=== PATIENT | female | born 1955 | race Caucasian/White ===

== ENCOUNTER → 2018-03-28 07:41 | Outpatient (CLI) | payer OTHER, SELFPAY ==
[2018-03-28 09:10] LABS: Cholesterol 255 mg/dL (140-199); HDL Cholesterol 51 mg/dL (40-60); LDL Cholesterol Calculated 165 mg/dL (<100); Triglycerides 196 mg/dL (35-150)
[2018-03-28 12:26] LABS: Hemoglobin A1C% w Est Avg Glu 5.7 % (4.0-6.0)
== END ==
PROVIDERS: Family Provider Family Medicine; PCP Family Medicine; Visit Provider Family Medicine
DX: E11.9 Type 2 diabetes mellitus without complications (principal)
CPT/HCPCS: 36415; 80061; 83036

== ENCOUNTER → 2018-08-27 17:27 | Outpatient (CLI) | payer OTHER, SELFPAY ==
[2018-08-27 17:47] LABS: Appearance Urine UA SL CLOUDY; Bilirubin Urine UA NEGATIVE (NEGATIVE); Color Urine UA YELLOW; Glucose Urine UA TRACE g/dL (Normal); Ketones Urine UA TRACE (NEGATIVE); Leukocyte Esterase Urine UA 1+ (NEGATIVE); Nitrite Urine UA NEGATIVE (Negative); Occult Blood Urine UA 1+ (Negative); Protein Urine UA TRACE (Negative); Specific Gravity Urine UA >=1.030 (1.000-1.035); Urobilinogen Urine UA 0.2 E.U./dL (0.2); pH Urine UA 5.5 (4.5-8.0)
[2018-08-27 17:59] LABS: Bacteria Urine Occasional (0-1); Culture Indicated Urine Specimen Cultured; RBC Urine 0-1/HPF (0-5/HPF); Squamous Epithelial Cell Urine 0-1 /HPF; WBC Urine 10-30/HPF (0-5/HPF)
== END ==
PROVIDERS: PCP Family Medicine; Visit Provider Family Medicine
DX: R30.0 Dysuria (principal)
CPT/HCPCS: 81003; 81015; 87077; 87086; 87186

== ENCOUNTER → 2019-03-31 07:12 | Outpatient (CLI) | payer OTHER, SELFPAY ==
[2019-03-31 08:45] LABS: Add Manual Diff / Slide Review NO; Basophils Absolute Auto 0 /uL (0-100); Eosinophils Absolute Auto 200 /uL (0-450); Eosinophils Percent Auto 4.3 % (2-4); Hematocrit 39.7 % (36-46); Hemoglobin 13.6 g/dL (12.0-16.0); Lymphocytes Absolute Auto 1600 /uL (1100-4500); Lymphocytes Percent Auto 41.9 % (25-40); Mean Corpuscular HGB Conc 34.3 % (30-36); Mean Corpuscular Hemoglobin 30.5 PG (26-34); Mean Corpuscular Volume 88.8 fL (80-100); Monocytes Absolute Auto 400 /uL (0-900); Monocytes Percent Auto 11.1 % (3-14); Neutrophils Absolute Auto 1600 /uL (1500-7000); Neutrophils Percent Auto 41.7 % (50-75); Platelet Count 238 X10^3/uL (150-400); Red Blood Cell Count 4.47 X10^6/uL (4.0-5.2); Red Cell Distribution Width 12.3 % (11.6-14.8); White Blood Cell Count 3.8 X10^3/uL (4.5-11.0)
[2019-03-31 08:53] LABS: Hemoglobin A1C% w Est Avg Glu 5.9 % (4.0-6.0)
[2019-03-31 09:03] LABS: Alanine Aminotransferase 27 IU/L (9-52); Albumin 4.4 g/dL (3.5-5.0); Albumin Globulin Ratio 1.4 (1.0-2.8); Alkaline Phosphatase 63 U/L (38-126); Aspartate Aminotransferase 31 IU/L (14-36); BUN Creatinine Ratio 25.6 (6-22); Bilirubin Total 0.4 mg/dL (0.2-1.3); Blood Urea Nitrogen 23 mg/dL (7-17); Calcium 10.1 mg/dL (8.4-10.2); Carbon Dioxide 27 mmol/L (22-32); Chloride 102 mmol/L (98-107); Cholesterol 244 mg/dL (140-199); Estimated Glomerular Filt Rate > 60.0 mL/min (>60); Globulin 3.1 g/dL (1.7-4.1); Glucose 129 mg/dL (80-110); HDL Cholesterol 42 mg/dL (40-60); HEMOLYSIS < 15 (0-50); LDL Cholesterol Calculated 151 mg/dL (<100); Potassium 4.1 mmol/L (3.4-5.1); Sodium 139 mmol/L (137-145); Total Protein 7.5 g/dL (6.3-8.2); Triglycerides 257 mg/dL (35-150)
== END ==
PROVIDERS: PCP Family Medicine; Visit Provider Family Medicine
DX: E11.9 Type 2 diabetes mellitus without complications (principal); E78.2 Mixed hyperlipidemia
CPT/HCPCS: 36415; 80053; 80061; 83036; 85025

== ENCOUNTER → 2019-04-02 12:31 | Outpatient (CLI) | payer OTHER, SELFPAY ==
--- NOTE | 2019-04-02 | DI.MG.S_ITS ---
BILATERAL DIGITAL SCREENING MAMMOGRAM 3D/2D WITH CAD: 04/02/2019 CLINICAL: Routine screening. Family history of breast cancer. Comparison is made to exams dated: 12/26/2017 mammogram, 11/09/2016 mammogram, and 06/06/2015 mammogram - [facility]. The tissue of both breasts is heterogeneously dense. This may lower the sensitivity of mammography. Current study was also evaluated with a Computer Aided Detection (CAD) system. No significant masses, calcifications, or other findings are seen in either breast. There has been no significant interval change. IMPRESSION: NEGATIVE There is no mammographic evidence of malignancy. A 1 year screening mammogram is recommended. This exam was interpreted at Station ID: [id number]. NOTE: For mammograms, a report in lay terms will be sent to the patient. Approximately 15% of breast malignancies will not be visualized mammographically. In the management of a palpable breast mass, a negative mammogram must not discourage biopsy of a clinically suspicious lesion. Electronically Signed By: Hnas espinoza/tani:04/02/2019 17:51:40 letter sent: Normal Exam ACR BI-RADS Category 1: Negative [id number]
== END ==
PROVIDERS: PCP Family Medicine; Visit Provider Family Medicine
DX: Z12.31 Encounter for screening mammogram for malignant neoplasm of breast (principal); Z80.3 Family history of malignant neoplasm of breast
CPT/HCPCS: 77063; 77067

== ENCOUNTER → 2019-12-22 08:17 | Outpatient (CLI) | payer OTHER, SELFPAY ==
[2019-12-22 09:12] LABS: Hemoglobin A1C% w Est Avg Glu 6.3 % (4.0-6.0)
[2019-12-22 10:05] LABS: Creatinine Urine Random 64.9 mg/dL
[2019-12-22 10:22] LABS: Microalbumi Creatinin Ratio Ur 9.2 ug/mg CR (<30); Microalbumin Urine Random < 0.6 mg/dL (0-1.6)
== END ==
PROVIDERS: PCP Family Medicine; Referring Provider Family Medicine; Visit Provider Family Medicine
DX: E11.9 Type 2 diabetes mellitus without complications (principal)
CPT/HCPCS: 36415; 82043; 82570; 83036

== ENCOUNTER → 2020-05-09 08:49 | Outpatient (CLI) | payer OTHER, SELFPAY ==
--- NOTE | 2020-05-09 08:59 | DI.MG.S_ITS ---
Patient Name: RUDI BAILEY date: 1955 Sex: F Attending Physician: Ephraim Indications: Date: 05/09/2020 08:53 At the request of: DAMASO ROBLES Procedure: MM screening mammo BI BILATERAL DIGITAL SCREENING MAMMOGRAM 3D/2D WITH CAD: 05/09/2020 CLINICAL: Routine screening. Family history of breast cancer. Comparison is made to exams dated: 04/02/2019 mammogram, 12/26/2017 mammogram, and 11/09/2016 mammogram - [facility]. The tissue of both breasts is heterogeneously dense. This may lower the sensitivity of mammography. Current study was also evaluated with a Computer Aided Detection (CAD) system. No significant masses, calcifications, or other findings are seen in either breast. There has been no significant interval change. IMPRESSION: NEGATIVE There is no mammographic evidence of malignancy. A 1 year screening mammogram is recommended. This exam was interpreted at Station ID: [id number]. NOTE: For mammograms, a report in lay terms will be sent to the patient. Approximately 15% of breast malignancies will not be visualized mammographically. In the management of a palpable breast mass, a negative mammogram must not discourage biopsy of a clinically suspicious lesion. Electronically Signed By: Damaso Zamarripa jr/tani:05/09/2020 09:40:33 letter sent: Normal Exam ACR BI-RADS Category 1: Negative 3341F
== END ==
PROVIDERS: PCP Family Medicine; Referring Provider Family Medicine; Visit Provider Family Medicine
DX: Z12.31 Encounter for screening mammogram for malignant neoplasm of breast (principal); Z80.3 Family history of malignant neoplasm of breast
CPT/HCPCS: 77063; 77067

== ENCOUNTER 2020-06-29 07:55 | Inpatient (IN) | payer OTHER, SELFPAY ==
[2020-06-29] VITALS (26 sets, daily range): BP systolic 128–159; BP diastolic 60–91; PULSE 66–90; RESP 12–22; TEMP 35.9–37.1; O2SAT 92–100; BMI 29.9
--- NOTE | 2020-06-29 | PATH_ITS ---
[facility] Accession Number: [id number] . 01 Material submitted: . small bowel - SMALL BOWEL SEGMENT . 01 Clinical history: . A: SMALL BOWEL SEGMENT X2, GASTRIC DISTRESS X1 DAY . 02 Diagnosis: Small Bowel, Resection: 1. Small bowel with areas of denuded mucosa and atrophy, consistent with ischemia. 2. Serosal fibrous adhesions. 3. Margins viable in both segments. 4. Negative for dysplasia or malignancy. MRV 07/04/2020 1511 Local . 02 Electronically signed: . Mai Garrido MD, Pathologist NPI- [id number] . 01 Gross description: . Received in formalin, labeled with the patient's name, MRN and #1 small bowel segment, are two portions of small bowel measuring 12.5 cm in length by 3.2 cm in diameter and 14.0 cm in length by 2.5 cm in diameter. The serosal surface of the smaller segment of small bowel is pink-hall and smooth. The shorter segment of small bowel is opened to reveal a hall-pink mucosal surface with unremarkable mucosal folds. No discrete masses, perforations or polyps are identified on the shorter portion of small bowel. The longer portion of small bowel has a hall-pink serosal surface with multiple adhesions to itself. The adhesions are 0.4 cm from the nearest stapled margin. The longer segment of small bowel is opened to reveal a pink-hall mucosal surface with unremarkable mucosal folds. No masses, polyps or perforations are identified. [employer] sections are submitted as follows: . A1-A2: shaves of resection margins from shorter segment of small bowel. A3: disability representative sections of small bowel wall from shorter segment. A4: shave of resection margin closest to adhesions from longer portion under that segment of small bowel. A5: shave of opposing margin. A6-A7: disability representative sections of larger segment of small bowel with adhesions. A8: disability representative sections of small bowel wall from larger segment. ([id number]) /MRV 06/30/2020 1437 Local . 02 Pathologist provided ICD-10: K46.0 . 02 CPT . 071587 Performed at: 01 [facility] [address] [id number] MD Satnam Oneill MD Phone: [phone] Performed at: [address] [facility] [address] [id number] MD Mai Garrido MD Phone: [phone]
[2020-06-29 08:34] LABS: Add Manual Diff / Slide Review NO; Basophils Absolute Auto 0 /uL (0-100); Basophils Percent Auto 0.5 % (0-2); Eosinophils Absolute Auto 100 /uL (0-450); Eosinophils Percent Auto 0.7 % (2-4); Hematocrit 42.6 % (36-46); Hemoglobin 14.5 g/dL (12.0-16.0); Lymphocytes Absolute Auto 900 /uL (1100-4500); Lymphocytes Percent Auto 11.9 % (25-40); Mean Corpuscular HGB Conc 34.1 % (30-36); Mean Corpuscular Hemoglobin 29.7 PG (26-34); Mean Corpuscular Volume 87.2 fL (80-100); Monocytes Absolute Auto 300 /uL (0-900); Monocytes Percent Auto 3.6 % (3-14); Neutrophils Absolute Auto 6200 /uL (1500-7000); Neutrophils Percent Auto 83.3 % (50-75); Platelet Count 246 X10^3/uL (150-400); Red Blood Cell Count 4.88 X10^6/uL (4.0-5.2); Red Cell Distribution Width 12.6 % (11.6-14.8); White Blood Cell Count 7.4 X10^3/uL (4.5-11.0)
[2020-06-29 08:37] LABS: Prothrombin Time 11.9 SECONDS (10.1-12.7)
[2020-06-29 08:40] LABS: PTT Partial Thromboplastin Tim 29 SECONDS (26.4-36.2)
[2020-06-29 08:44] LABS: Alanine Aminotransferase 39 IU/L (<35); Albumin Globulin Ratio 1.5 (1.0-2.8); Alkaline Phosphatase 78 U/L (38-126); Aspartate Aminotransferase 36 IU/L (14-36); BUN Creatinine Ratio 22.4 (6-22); Bilirubin Total 0.7 mg/dL (0.2-1.3); Blood Urea Nitrogen 17 mg/dL (7-17); Calcium 11.6 mg/dL (8.4-10.2); Carbon Dioxide 24 mmol/L (22-32); Chloride 100 mmol/L (98-107); Estimated Glomerular Filt Rate > 60.0 mL/min (>60); Globulin 3.4 g/dL (1.7-4.1); Glucose 188 mg/dL (80-110); HEMOLYSIS < 15 (0-50); Lipase 315 U/L (23-300); Potassium 4.2 mmol/L (3.4-5.1); Sodium 137 mmol/L (137-145); Total Protein 8.4 g/dL (6.3-8.2)
[2020-06-29] MEDS: ONDANSETRON 4 MG/2 ML INJ IV (08:52)
--- NOTE | 2020-06-29 09:07 | ED_ITS ---
HPI - Abdominal Pain General Chief Complaint: Abdominal Pain Stated Complaint: Gastric distress x1 day Time Seen by Provider: 06/29/20 08:23 Source: patient and family Mode of arrival: Wheelchair Limitations: no limitations History of Present Illness HPI narrative: Patient here with . Complains slow onset right upper quadrant epigastric periumbilical pain 2:00 p.m. yesterday. Then had nonbloody vomiting. No chest pain no back pain. Pain sharp. 8/10, does not radiate. No numbness tingling weakness. No urinary complaints. Patient still has her gallbladder. History of renal cancer, only has 1 kidney. History appendectomy as well. Related Data Home Medications Medication Instructions Recorded Confirmed aspirin 81 mg PO QDAY #30 tab 09/10/16 06/29/20 [TURMERIC] 1 tab PO BID #0 09/11/17 06/29/20 cholecalciferol (vitamin D3) 5,000 unit PO BID #0 09/11/17 06/29/20 magnesium oxide 200 mg PO DAILY #0 09/11/17 06/29/20 multivitamin [Multiple Vitamins] 1 tab PO QDAY #0 09/11/17 06/29/20 calcium carbonate 600 mg calcium 600 mg PO DIRECTED 01/21/20 06/29/20 (1,500 mg) tablet Allergies Allergy/AdvReac Type Severity Reaction Status Date / Time No Known Drug Allergies Allergy Verified 06/29/20 14:52 Review of Systems Review of Systems Narrative: GENERAL: Denies chills, fatigue, malaise, fever, sweats. HEENT: Denies sinus pain, ear pain, sore throat, difficulty swallowing, dizzin ess. RESPIRATORY: Denies dyspnea, cough, wheezing, hemoptysis, sputum. CARDIOVASCULAR: Denies chest pain, palpitations, orthopnea, edema, GASTROINTESTINAL: Complains of nausea, vomiting, abdominal pain, denies any diarrhea, constipation, melena. : Denies dysuria, frequency, incontinence, hematuria, urinary retention. MUSCULOSKELETAL: denies weakness, joint pain, or bony pain SKIN: Denies rash, skin lesions, or other NEUROLOGIC: Denies weakness, headache, numbness, change in speech, confusion, seizures, incoordination. PSYCHIATRIC: No concerning psychosocial issues. ROS Unobtainable: All systems reviewed & are unremarkable except as noted in HPI and below Patient History Medical History Controlled type 2 diabetes mellitus (Chronic) History of unilateral nephrectomy (Chronic 02/03/14) Irritable bowel syndrome (Chronic) Malignant neoplasm of kidney (Chronic 02/03/14) Mixed hyperlipidemia (Chronic 04/25/12) Surgical History History of nephrectomy Status post appendectomy Status post surgery (03/13/10) Social History marital status: household members: spouse Smoking Status: Never smoker alcohol intake: current substance use type: does not use Smoking Status: Never smoker alcohol intake frequency: 0-2 drinks per day Alcohol type: wine Substance Use Type: does not use Exam Narrative Exam Narrative: GENERAL: patient appears stated age. Well-nourished, well- developed patient, in no distress, not toxic HEAD: Atraumatic. Normocephalic. EYES: Pupils equal round and reactive. Extraocular motions intact. No scleral icterus. No injection or drainage. ENT: Nose without bleeding, purulent drainage. Throat without erythema, tonsillar hypertrophy or exudate. Airway patent. NECK: Trachea midline. Non tender CARDIOVASCULAR: Regular rate and rhythm without murmurs, gallops, or rubs. RESPIRATORY: Clear to auscultation. Breath sounds equal bilaterally. No wheezes, rales, or rhonchi. GASTROINTESTINAL: Abdomen soft, nondistended, reproducible tenderness epigastric and periumbilical. Positive Narayanan sign. No CVA tenderness normal bowel sounds, no peritoneal signs. EXTREMITIES: No edema or joint tenderness. BACK: Nontender without deformity or crepitance. No flank tenderness. NEURO: AOx3. SKIN: No rash or erythema of visible areas PSYCH: Not anxious, is cooperative Initial Vital Signs Initial Vital Signs: Vital Signs Temperature 96.6 F L 06/29/20 08:05 Course Course Course Narrative: NG tube ordered. CT scan results completed. Decision to Admit Date: 06/29/20 Decision to Admit time: 09:51 Orders Ordered: ED Orders 06/29/20 09:06 CT abdomen pelvis wo con Stat 06/29/20 10:02 XR abdomen 1V Stat 06/29/20 10:04 Education, smoking cessation ONGOING 06/30/20 05:00 BMP [Basic Metabolic Panel] DAILY Complete Blood Count AUTO DIFF DAILY Magnesium DAILY Phosphorous DAILY 07/01/20 05:00 BMP [Basic Metabolic Panel] DAILY Complete Blood Count AUTO DIFF DAILY Magnesium DAILY Phosphorous DAILY 07/02/20 05:00 BMP [Basic Metabolic Panel] DAILY Complete Blood Count AUTO DIFF DAILY Magnesium DAILY Phosphorous DAILY Fentanyl (Sublimaze) 0 mcg IV Q5M PRN PRN Reason: Pain, Moderate (4-6) Hydromorphone HCl (Dilaudid) 0 mg IV Q5M PRN PRN Reason: Pain, Severe (7-10) Sodium Chloride (Normal Saline 0.9%) 1,000 mls @ 150 mls/hr IV CONT [facility] Last Admin: 06/29/20 12:06 Dose: 100 mls/hr Documented by: TAMERA Lactated Ringer's (Lactated Ringers) 1,000 mls @ 42 mls/hr IV CONT [facility] Last Admin: 06/29/20 14:46 Dose: 42 mls/hr Documented by: IRVIN Lorazepam (Ativan) 0.25 mg IV NOW PRN PRN Reason: Anxiety Morphine Sulfate (Morphine) 2 mg IV Q2H PRN PRN Reason: Pain, Moderate (4-6) Naloxone HCl (Narcan) 0.2 mg IV Q2MIN PRN PRN Reason: Opiate Reversal Ondansetron HCl (Zofran) 4 mg IV Q8HR PRN PRN Reason: Nausea And Vomiting Ondansetron HCl (Zofran) 4 mg IV NOW PRN PRN Reason: Nausea And Vomiting Discontinued Medications Bupivacaine HCl (Sensorcaine 0.25% (Pf)) 30 ml INJ NOW ONE Stop: 06/29/20 16:23 Last Admin: 06/29/20 16:23 Dose: 30 ml Documented by: ANN Sodium Chloride (Normal Saline 0.9%) 1,000 mls @ 1,000 mls/hr IV BOLUS ONE Stop: 06/29/20 10:03 Last Infusion: 06/29/20 11:09 Dose: 0 mls/hr Documented by: Admin: 06/29/20 09:42 Dose: 1,000 mls/hr Documented by: MORGAN Piperacillin/Tazobactam/Dextrose (Zosyn) 3.375 gm in 50 mls @ 100 mls/hr IV NOW ONE Stop: 06/29/20 15:22 Last Infusion: 06/29/20 16:20 Dose: 0 mls/hr Documented by: Admin: 06/29/20 16:05 Dose: 100 mls/hr Documented by: ARELI Cefazolin Sodium/Dextrose (Ancef) 2 gm in 100 mls @ 200 mls/hr IV NOW ONE Stop: 06/29/20 16:43 Last Infusion: 06/29/20 16:05 Dose: 0 mls/hr Documented by: Admin: 06/29/20 15:50 Dose: 200 mls/hr Documented by: ARELI Morphine Sulfate (Morphine) 4 mg IV NOW ONE Stop: 06/29/20 09:05 Last Admin: 06/29/20 09:42 Dose: 4 mg Documented by: MORGAN Morphine Sulfate (Morphine) 2 mg IV Q4HR PRN PRN Reason: Pain, Moderate (4-6) Ondansetron HCl (Zofran) 4 mg IV NOW ONE Stop: 06/29/20 08:45 Last Admin: 06/29/20 08:52 Dose: 4 mg Documented by: MORGAN Reevaluation(s) Reevaluation #1: Patient states nausea and pain better. Awaiting for NG placement. Spoke with patient has been results and treatment plan and they agree Time: 10:03 Consultations Consultation #1: Spoke with Dr. Carter, general surgery, he will admit patient. Possible surgery today Time: 10:04 Vital Signs Vital signs: Vital Signs - 8 hr 06/29/20 10:00 06/29/20 10:01 06/29/20 10:30 Pulse Rate 67 66 69 Respiratory Rate 15 15 18 Blood Pressure 159/76 H 151/75 H Pulse Oximetry 97 96 94 MDM - Abdominal Pain Differential Diagnosis Differential diagnosis: Likely abdominal pain, constipation, diverticulitis, pancreatitis, small bowel obstruction and other (Cholecystitis) Lab Data Attestation: I reviewed the patient's lab results. Result diagrams: 06/29/20 08:25 06/29/20 08:25 Labs: Lab Results 06/29/20 06/29/20 06/29/20 Range/Units 08:25 08:25 08:25 WBC 7.4 (4.5-11.0) X10^3/uL RBC 4.88 (4.0-5.2) X10^6/uL Hgb 14.5 (12.0-16.0) g/dL Hct 42.6 (36-46) % MCV 87.2 (80-100) fL MCH 29.7 (26-34) PG MCHC 34.1 (30-36) % RDW 12.6 (11.6-14.8) % Plt Count 246 (150-400) X10^3/uL Neut % (Auto) 83.3 H (50-75) % Lymph % (Auto) 11.9 L (25-40) % [place]range % (Auto) 3.6 (3-14) % Eos % (Auto) 0.7 L (2-4) % Baso % (Auto) 0.5 (0-2) % Neut # (Auto) 6200 (7393-0183) /uL Lymph # (Auto) 900 L (9198-6690) /uL [place] # (Auto) 300 (0-900) /uL Eos # (Auto) 100 (0-450) /uL Baso # (Auto) 0 (0-100) /uL PT 11.9 (10.1-12.7) SECONDS INR 1.0 (0.9-1.3) APTT 29 (26.4-36.2) SECONDS Sodium 137 (137-145) mmol/L Potassium 4.2 (3.4-5.1) mmol/L Chloride 100 (98-107) mmol/L Carbon Dioxide 24 (22-32) mmol/L BUN 17 (7-17) mg/dL Creatinine 0.76 (0.52-1.04) mg/dL Estimated GFR > 60.0 (>60) mL/min BUN/Creatinine Ratio 22.4 H (6-22) Glucose 188 H (80-110) mg/dL Calcium 11.6 H (8.4-10.2) mg/dL Total Bilirubin 0.7 (0.2-1.3) mg/dL AST 36 (14-36) IU/L ALT 39 H (<35) IU/L Alkaline Phosphatase 78 (38-126) U/L Total Protein 8.4 H (6.3-8.2) g/dL Albumin 5.0 (3.5-5.0) g/dL Globulin 3.4 (1.7-4.1) g/dL Albumin/Globulin Ratio 1.5 (1.0-2.8) Lipase 315 H (23-300) U/L COVID-19 PCR (Negative) 06/29/20 Range/Units 10:10 WBC (4.5-11.0) X10^3/uL RBC (4.0-5.2) X10^6/uL Hgb (12.0-16.0) g/dL Hct (36-46) % MCV (80-100) fL MCH (26-34) PG MCHC (30-36) % RDW (11.6-14.8) % Plt Count (150-400) X10^3/uL Neut % (Auto) (50-75) % Lymph % (Auto) (25-40) % Lagrange % (Auto) (3-14) % Eos % (Auto) (2-4) % Baso % (Auto) (0-2) % Neut # (Auto) (0318-1141) /uL Lymph # (Auto) (0084-5609) /uL [place] # (Auto) (0-900) /uL Eos # (Auto) (0-450) /uL Baso # (Auto) (0-100) /uL PT (10.1-12.7) SECONDS INR (0.9-1.3) APTT (26.4-36.2) SECONDS Sodium (137-145) mmol/L Potassium (3.4-5.1) mmol/L Chloride (98-107) mmol/L Carbon Dioxide (22-32) mmol/L BUN (7-17) mg/dL Creatinine (0.52-1.04) mg/dL Estimated GFR (>60) mL/min BUN/Creatinine Ratio (6-22) Glucose (80-110) mg/dL Calcium (8.4-10.2) mg/dL Total Bilirubin (0.2-1.3) mg/dL AST (14-36) IU/L ALT (<35) IU/L Alkaline Phosphatase (38-126) U/L Total Protein (6.3-8.2) g/dL Albumin (3.5-5.0) g/dL Globulin (1.7-4.1) g/dL Albumin/Globulin Ratio (1.0-2.8) Lipase (23-300) U/L COVID-19 PCR Negative (Negative) Imaging Data CT scan - abdomen/pelvis: Radiologist's Impression: [address] [address] [address] Scan Report Signed Patient: Apurva Angelo LMR#: [id number] : 6Acct:[id number] Age/Sex: 64 / FDate of Service: 06/29/20 Loc: ED Accession Number: [id number] Procedure: CT abdomen pelvis wo con Ordering Provider: Wayne Hahn MD PROCEDURE: CT ABDOMEN PELVIS WO CON INDICATIONS: Abdominal pain TECHNIQUE: Noncontrast 5 mm thick sections acquired from the diaphragms to the symphysis. 5 mm coronal and sagittal reformats were then performed. For radiation dose reduction, the following was used: automated exposure control, adjustment of mA and/or kV according to patient size. COMPARISON: [facility], CT, ABDOMEN/PELVIS WITH CONTRAST, 06/17/2007, 8:05. FINDINGS: Image quality: Excellent. ABDOMEN: Subcentimeter bilateral pulmonary nodules in subpleural locations of the left and right lower lobes. Please see montage image for further detail. Heart size is normal. Hepatic steatosis. Gallbladder unremarkable . Pancreas is normal in contours. Spleen is normal in size. No adrenal nodules. Right kidney absent. No hydronephrosis. Left kidney grossly unremarkable. Dilated small bowel loops present in the left upper quadrant. A transition point is suspected at the location of a ventral hernia (4-5 cm) which contains bowel loop No free air. There is mild pelvic free fluid. Appendix is not clearly identified however no suspicious pericecal inflammatory changes are seen. Colonic diverticulosis is seen without evidence of acute complication. Nodes and vessels: No retroperitoneal or mesenteric adenopathy by size criteria. Aorta and inferior vena cava are normal in caliber. Miscellaneous: No ventral hernias. PELVIS: Bladder partially decompressed and otherwise unremarkable. Miscellaneous: No inguinal hernias or adenopathy. Bones: No suspicious bony lesions. No vertebral body compression fractures. IMPRESSION: Small-bowel obstruction, with a transition point likely at the location of a ventral hernia which contains bowel loops and fat. Findings were personally telephoned and discussed with Dr. Hahn in the emergency department 0943 hours on 06/29/20. Bilateral lower lobe sub 5 mm pulmonary nodules which warrant continued follow- up in [address] to exclude early metastatic or malignant possibilities. Hepatic steatosis Incidental colonic diverticulosis Additional chronic and incidental findings as above. Dictated by: Gen Richardson M.D. on 06/29/2020 at 9:32 Approved by: Gen Richardson M.D. on 06/29/2020 at 9:43 Abdominal x-ray: Radiologist's Impression: [address] [address] XRay Report Signed Patient: Apurva Angelo LMR#: [id number] : 6Acct:[id number] Age/Sex: 64 / FDate of Service: 06/29/20 Loc: OO878-6 Accession Number: [id number] Procedure: XR abdomen 1V Ordering Provider: Wayne Hahn MD PROCEDURE: XR ABDOMEN 1V INDICATIONS: Post NG placement TECHNIQUE: One view of the abdomen acquired. COMPARISON: [facility], CT, CT ABDOMEN PELVIS WO CON, 06/29/2020, 9:11. FINDINGS: Surgical changes and devices: Enteric tube is seen with the tip in the stomach.. Scattered surgical clips. Dilated small bowel loops are noted as before. Soft tissues: No suspicious abdominal calcifications. Visualized solid organ contours appear normal in size. Bones: No suspicious bony lesions. IMPRESSION: Status post placement of enteric tube with the tip in the stomach. Dictated by: Gen Richardson M.D. on 06/29/2020 at 11:18 Approved by: Gen Richardson M.D. on 06/29/2020 at 13:19 ECG Data Attestation: I personally reviewed and interpreted this ECG as follows: Interpretation: Normal sinus rhythm, no ST elevation depression. Rate 84 MDM Narrative Medical decision making narrative: Will need admission. Possible surgery per surgeon Dr. Carter. Patient not toxic. Discharge Plan Departure Patient Disposition: Admitted As Inpatient Clinical Impression: Small bowel obstruction Discharge Date/Time: 06/29/20 11:03 Admit Date/Time: 06/29/20 10:31 Admit Provider: Denis Carter
[2020-06-29] MEDS: SODIUM CHLORIDE 0.9% 1,000 ML 1000 ML IV (09:42)
[2020-06-29] MEDS: MORPHINE 4 MG/ML INJ IV (09:42)
--- NOTE | 2020-06-29 10:02 | DI.RAD.S_ITS ---
PROCEDURE: XR ABDOMEN 1V INDICATIONS: Post NG placement TECHNIQUE: One view of the abdomen acquired. COMPARISON: [facility], CT, CT ABDOMEN PELVIS WO CON, 06/29/2020, 9:11. FINDINGS: Surgical changes and devices: Enteric tube is seen with the tip in the stomach.. Scattered surgical clips. Dilated small bowel loops are noted as before. Soft tissues: No suspicious abdominal calcifications. Visualized solid organ contours appear normal in size. Bones: No suspicious bony lesions. IMPRESSION: Status post placement of enteric tube with the tip in the stomach. Dictated by: Gen Richardson M.D. on 06/29/2020 at 11:18 Approved by: Gen Richardson M.D. on 06/29/2020 at 13:19
--- NOTE | 2020-06-29 10:59 | PC.NURSE ---
OGt placed without difficulty via right nare. 150 cc bile/greenish brown drainage. placement confirmed by auscultation and gastric contents.
[2020-06-29] MEDS: SODIUM CHLORIDE 0.9% 1,000 ML 100 ML IV (12:06)
[2020-06-29 12:07] LABS: COVID19 -Nasal RAPID Negative (Negative)
--- NOTE | 2020-06-29 12:46 | PC.ADMIT ---
Safe hand off from ED. Patient arrived via portable stretcher and was able to shit to the bed w/ stand by assistance. Patient VSS, lung sounds clear. Patient denies nausea or pain at this time, but stated she had Morphine in the ED. Patient bowel tones hypoactive in all 4 quadrants. Patient was educated about the use of call light, bed is low and locked. [email or web address] [id number] Admission Note: The patient,Apurva Angelo,64 y/o, was given written information regarding hospital policies, unit procedures and contact persons. Patient's smoking status: Never smoker. Vital Signs - 8 hr 06/29/20 08:05 06/29/20 08:25 06/29/20 08:38 Temperature 96.6 F L Pulse Rate 90 82 Respiratory Rate 19 Blood Pressure 128/60 Pulse Oximetry 94 96 06/29/20 08:40 06/29/20 09:00 06/29/20 09:01 Temperature Pulse Rate 81 77 79 Respiratory Rate 20 22 17 Blood Pressure 141/78 H 153/70 H Pulse Oximetry 95 96 96 06/29/20 09:30 06/29/20 10:00 06/29/20 10:01 Temperature Pulse Rate 66 67 66 Respiratory Rate 18 15 15 Blood Pressure 133/65 159/76 H Pulse Oximetry 92 97 96 06/29/20 10:30 Temperature Pulse Rate 69 Respiratory Rate 18 Blood Pressure 151/75 H Pulse Oximetry 94
--- NOTE | 2020-06-29 13:37 | PM.HP.1 ---
History of Present Illness History of Present Illness Date Patient Seen: 06/29/20 Time Patient Seen: 13:37 Chief complaint: Gastric distress day Narrative: 64-year-old female seen in consultation for a small-bowel obstruction. For the past 24 hours she has had abdominal pain bloating nausea and emesis. CT abdomen pelvis demonstrates small bowel obstruction with a transition point within a ventral hernia. On admission she is afebrile white blood count 7. She has never had a previous bowel obstruction she does have multiple prior abdominal surgeries. She has history of renal cell carcinoma status post unilateral nephrectomy, appendectomy, laparoscopy for endometriosis. Medical history relevant for noninsulin dependent diabetes. She is a nonsmoke, not anticoagulated takes aspirin daily Patient History Medical History Controlled type 2 diabetes mellitus (Chronic) History of unilateral nephrectomy (Chronic 02/03/14) Irritable bowel syndrome (Chronic) Malignant neoplasm of kidney (Chronic 02/03/14) Mixed hyperlipidemia (Chronic 04/25/12) Surgical History History of nephrectomy Status post appendectomy Status post surgery (03/13/10) Family & Social History Social History: household members spouse Prior Living Arrangements House Safety & Behavioral: Feels Safe in Current Yes Environment Been Physically Hurt or No Threatened By a Person Suicidal Ideation Description None Suicide Plan Description No Plan Tobacco & Substance use: Smoking Status Never smoker alcohol intake current alcohol intake frequency 0-2 drinks per day Substance Use Type does not use Meds Home Medications and Allergies Home Medications Medication Instructions Recorded Confirmed Type aspirin 81 mg PO QDAY #30 tab 09/10/16 06/29/20 History [TURMERIC] #0 09/11/17 01/21/20 History cholecalciferol (vitamin D3) 5,000 unit PO #0 09/11/17 01/21/20 History magnesium oxide 200 mg PO DAILY #0 09/11/17 06/29/20 History multivitamin [Multiple Vitamins] 1 tab PO QDAY #0 09/11/17 06/29/20 History calcium carbonate 600 mg calcium 600 mg PO DIRECTED 01/21/20 06/29/20 History (1,500 mg) tablet Allergies Allergy/AdvReac Type Severity Reaction Status Date / Time No Known Drug Allergies Allergy Verified 01/21/20 09:32 Review of Systems Review of Systems Narrative: A 10 point review of systems is negative except as noted in the HPI Exam Vital Signs (past 8 hours): - 06/29/20 08:05 06/29/20 08:25 06/29/20 08:38 Temperature 96.6 F L Pulse Rate 90 82 Respiratory Rate 19 Blood Pressure 128/60 Pulse Oximetry 94 96 06/29/20 08:40 06/29/20 09:00 06/29/20 09:01 Temperature Pulse Rate 81 77 79 Respiratory Rate 20 22 17 Blood Pressure 141/78 H 153/70 H Pulse Oximetry 95 96 96 06/29/20 09:30 06/29/20 10:00 06/29/20 10:01 Temperature Pulse Rate 66 67 66 Respiratory Rate 18 15 15 Blood Pressure 133/65 159/76 H Pulse Oximetry 92 97 96 06/29/20 10:30 06/29/20 11:15 Temperature 97.7 F Pulse Rate 69 79 Respiratory Rate 18 18 Blood Pressure 151/75 H 149/74 H Pulse Oximetry 94 96 Oxygen Delivery Method Room Air Oxygen Flow Rate 0 Narrative Exam Narrative: General-no acute distress, well nourished adult female HEENT-moist mucous membranes, no scleral icterus Neck-supple, no lymphadenopathy Chest- non labored respirations, clear to auscultation bilaterally Cardiac-regular rate no peripheral edema Abdomen-mildly distended, midline supraumbilical ventral hernia tender to palpation partially reducible Extremities-warm, well perfused Neurological-alert and oriented, no focal deficits Objective Labs Result Diagrams: 06/29/20 08:25 06/29/20 08:25 Labs: Laboratory Results - last 24 hr 06/29/20 06/29/20 06/29/20 08:25 08:25 08:25 WBC 7.4 RBC 4.88 Hgb 14.5 Hct 42.6 MCV 87.2 MCH 29.7 MCHC 34.1 RDW 12.6 Plt Count 246 Neut % (Auto) 83.3 H Lymph % (Auto) 11.9 L [place] % (Auto) 3.6 Eos % (Auto) 0.7 L Baso % (Auto) 0.5 Neut # (Auto) 6200 Lymph # (Auto) 900 L [place] # (Auto) 300 Eos # (Auto) 100 Baso # (Auto) 0 PT 11.9 INR 1.0 APTT 29 Sodium 137 Potassium 4.2 Chloride 100 Carbon Dioxide 24 BUN 17 Creatinine 0.76 Estimated GFR > 60.0 BUN/Creatinine Ratio 22.4 H Glucose 188 H Calcium 11.6 H Total Bilirubin 0.7 AST 36 ALT 39 H Alkaline Phosphatase 78 Total Protein 8.4 H Albumin 5.0 Globulin 3.4 Albumin/Globulin Ratio 1.5 Lipase 315 H COVID-19 PCR 06/29/20 10:10 WBC RBC Hgb Hct MCV MCH MCHC RDW Plt Count Neut % (Auto) Lymph % (Auto) [place] % (Auto) Eos % (Auto) Baso % (Auto) Neut # (Auto) Lymph # (Auto) [place] # (Auto) Eos # (Auto) Baso # (Auto) PT INR APTT Sodium Potassium Chloride Carbon Dioxide BUN Creatinine Estimated GFR BUN/Creatinine Ratio Glucose Calcium Total Bilirubin AST ALT Alkaline Phosphatase Total Protein Albumin Globulin Albumin/Globulin Ratio Lipase COVID-19 PCR Negative Assessment & Plan Assessment & Plan narrative: 64-year-old female with a small-bowel obstruction, transition point is within a supraumbilical ventral hernia. She has an incarcerated ventral hernia with associated small-bowel obstruction which is not fully reducible. Recommended that we proceed with an exploratory laparotomy, possible bowel resection. Described the nature of the procedure to her and the surgical risks including bleeding infection need for small bowel resection anastomotic leak damage to surrounding structures. Her questions have been answered she is in agreement with this plan. Quality VTE Deep Vein Thrombosis/Pulmonary Embolism Present on Admission: No
[2020-06-29] MEDS: LACTATED RINGERS 1,000 ML 42 ML IV (14:46)
--- NOTE | 2020-06-29 14:58 | PC.NURSE ---
Patient went to surgery at 1435.
[2020-06-29] MEDS: CEFAZOLIN 2 GM/100 ML FROZ.PIGGY IV (15:50)
--- NOTE | 2020-06-29 15:58 | SUR.OPER ---
Supine on padded OR bed, head on pillow, arms secured on padded arm boards at <90 degrees abduction, legs uncrossed, safety belt at thigh, tape over blanket over lower legs.
[2020-06-29] MEDS: PIPERACILLIN-TAZO 3.375 GM/50 ML FROZ.PIGGY IV (16:05)
[2020-06-29] MEDS: BUPIVACAINE 0.25% (PF) VIAL 30 ML INJ (16:23)
--- NOTE | 2020-06-29 17:37 | P.OP_ITS ---
Operative Date/Time/Diagnoses Date of procedure: 06/29/20 Time of procedure: 17:37 Pre-op diagnosis: SMALL-BOWEL OBSTRUCTION Post-op diagnosis: same Procedure & Clinicians Procedure: EXPLORATORY LAPAROTOMY SMALL-BOWEL RESECTION VENTRAL HERNIA REPAIR Same procedure as scheduled: Yes Indications: 64-YEAR-OLD FEMALE WITH A HISTORY OF PRIOR ABDOMINAL SURGERY WHO PRESENTED WITH AN INCARCERATED VENTRAL HERNIA AND SMALL-BOWEL OBSTRUCTION. CT SCAN DEMONSTRATES TRANSITION POINT WITHIN THE VENTRAL HERNIA. Surgeon: Denis Carter Click Yes if Unassisted: Yes Anesthesia Type: General Operative Notes Findings: ISCHEMIC SEGMENT OF SMALL BOWEL WITHIN THE VENTRAL HERNIA DEFECT Specimen(s): other (SMALL-BOWEL RESECTION X2) Estimated Blood Loss (mL): 50 Procedure in detail: The patient was brought to the operating room and placed supine on the table. Bilateral lower extremity compression devices were concepcion lied. General anesthesia was induced she was intubated with an endotracheal tube. She was prepped and draped in sterile fashion. Time-out was performed. Midline incision was made around the umbilicus. The subcutaneous tissues were divided. The fascia was grasped elevated and sharply incised with a knife. The abdomen was entered atraumatically. The small bowel was matted to the midline and entry into the abdomen was made by elevating the fascia and then sharply incised the adhesions between the small bowel and the abdominal wall. The majority of the small bowel could now be eviscerated from the abdomen but there was still a knuckle of small bowel that was stuck within the ventral hernia defect which was just to the right of midline close to the umbilicus. The fascial defect of the ventral hernia was then sharply incised and this allowed the knuckle of small bowel to be retracted out of the defect. Inspection of this strangulated small bowel demonstrated that the mesentery had a large hematoma within it and the bowel was dusky in appearance consistent with ischemia. A small-bowel resection was then performed. A window within the mesentery was made on either side of the ischemic bowel and then the bowel was transected using the ISAI stapler blue load 55mm. The mesentery to the resected segment was taken with the LigaSure device. I decided after looking at the 2 ends of the anastomosis that there was too much interloop adhesions on the proximal and to safely perform the anastomosis I resected another segment of small bowel with the interloop adhesions of approximately 5 in length. This was passed off the field as specimen labeled small bowel resection. A small bowel [id number] anastomosis was created. A crotch stitch of silk was placed and then an enterotomy in each limb was created and the stapler was used to create a common channel along the anitmesenteric border of each limb. Inspection of the common channel demonstrated that it was widely patent as well as hemostatic. The opening to the common channel was then closed in a running fashion using 3 0 PDS suture in a running fashion. Inspection of the anastomosis demonstrated it was patent and without leak. I closed the mesenteric defect in a running fashion using silk suture. The bowel was then returned to the abdomen and the abdomen was copiously irrigated with 2 L of sterile saline. The ventral hernia defect was approximately 4 cm in maximal diameter and I closed the defect using a 1. PDS suture from inside the abdomen. The fascia had retreated significantly on both sides of the midline incision and skin flaps were raised in order to advanced the fascia to the midline without tension. The fascia was then carefully closed in a running fashion using #1 PDS. The subcutaneous tissues were then reapproximated using Vicryl skin closed with andrés. Patient was extubated transferred to recovery room in a stable condition. Complications: none Post-operative Condition: stable Disposition: Acute Care
[2020-06-29] MEDS: fentaNYL 100 MCG/2 ML INJ IV ×2 (17:53→18:00)
--- NOTE | 2020-06-29 18:26 | SUR.PHASEI ---
Report called to Maranda Cano pt transferred 2 RN,s to floor-
[2020-06-29] MEDS: MORPHINE 2 MG/ML INJ (20:12)
[2020-06-29] MEDS: SODIUM CHLORIDE 0.9% 1,000 ML 150 ML IV (21:38)
[2020-06-29] MEDS: MORPHINE 2 MG/ML INJ IV (23:54)
[2020-06-30] VITALS (7 sets, daily range): BP systolic 121–137; BP diastolic 63–72; PULSE 76–90; RESP 16–18; TEMP 36.6–37.9; O2SAT 92–96
[2020-06-30] MEDS: SODIUM CHLORIDE 0.9% 1,000 ML 150 ML IV ×4 (00:21→21:58)
[2020-06-30] MEDS: MORPHINE 2 MG/ML INJ IV ×3 (05:54→14:27)
[2020-06-30 06:18] LABS: Add Manual Diff / Slide Review NO; Basophils Absolute Auto 0 /uL (0-100); Basophils Percent Auto 0.2 % (0-2); Eosinophils Absolute Auto 0 /uL (0-450); Hemoglobin 12.5 g/dL (12.0-16.0); Lymphocytes Absolute Auto 600 /uL (1100-4500); Lymphocytes Percent Auto 11.3 % (25-40); Mean Corpuscular HGB Conc 33.8 % (30-36); Mean Corpuscular Hemoglobin 29.7 PG (26-34); Mean Corpuscular Volume 87.9 fL (80-100); Monocytes Absolute Auto 400 /uL (0-900); Monocytes Percent Auto 6.6 % (3-14); Neutrophils Absolute Auto 4600 /uL (1500-7000); Neutrophils Percent Auto 81.9 % (50-75); Platelet Count 210 X10^3/uL (150-400); White Blood Cell Count 5.7 X10^3/uL (4.5-11.0)
[2020-06-30 06:26] LABS: BUN Creatinine Ratio 15.5 (6-22); Blood Urea Nitrogen 13 mg/dL (7-17); Calcium 8.9 mg/dL (8.4-10.2); Carbon Dioxide 25 mmol/L (22-32); Chloride 103 mmol/L (98-107); Estimated Glomerular Filt Rate > 60.0 mL/min (>60); Glucose 190 mg/dL (80-110); HEMOLYSIS < 15 (0-50); Magnesium 1.5 mg/dL (1.6-2.3); Phosphorous 3.6 mg/dL (2.8-4.1); Potassium 4.2 mmol/L (3.4-5.1); Sodium 135 mmol/L (137-145)
--- NOTE | 2020-06-30 09:53 | P.PN_ITS ---
Subjective Subjective Date Patient Seen: 06/30/20 Time Patient Seen: 09:53 Interval history: No acute overnight events. Has expected midline incisional pain. No flatus or bowel movement. Exam Vital Signs (past 8 hours): - 06/30/20 05:30 06/30/20 09:00 Temperature 97.9 F 99.2 F Pulse Rate 90 84 Respiratory Rate 18 16 Blood Pressure 133/70 128/63 Pulse Oximetry 92 94 Oxygen Delivery Method Nasal Cannula Oxygen Flow Rate 1 Narrative Exam Narrative: General adult female alert oriented no acute distress Chest nonlabored respirations Abdomen soft appropriately tender to palpation mildly distended midline dressing clean dry intact Objective Labs Result Diagrams: 06/30/20 05:43 06/30/20 05:43 Labs: Laboratory Results - last 24 hr 06/29/20 06/30/20 06/30/20 10:10 05:43 05:43 WBC 5.7 RBC 4.20 Hgb 12.5 Hct 37.0 MCV 87.9 MCH 29.7 MCHC 33.8 RDW 13.0 Plt Count 210 Neut % (Auto) 81.9 H Lymph % (Auto) 11.3 L [place] % (Auto) 6.6 Eos % (Auto) 0.0 L Baso % (Auto) 0.2 Neut # (Auto) 4600 Lymph # (Auto) 600 L [place] # (Auto) 400 Eos # (Auto) 0 Baso # (Auto) 0 Sodium 135 L Potassium 4.2 Chloride 103 Carbon Dioxide 25 BUN 13 Creatinine 0.84 Estimated GFR > 60.0 BUN/Creatinine Ratio 15.5 Glucose 190 H Calcium 8.9 Phosphorus 3.6 Magnesium 1.5 L COVID-19 PCR Negative Assessment & Plan Post-op Postoperative Procedures: Procedures Operation Date: 06/29/20 15:00 Actual Procedures Side Surgeon p Exploratory Laparotomy, small bowel resection Denis Carter MD Postoperative status narrative: 64-year-old female postoperative day 1 after an exploratory laparotomy small bowel resection for a strangulated ventral hernia. # postoperative ileus-continue nasogastric tube to intermittent low wall suction. Okay for ice chips and sips of water it if NG tube is working. Will await return of bowel function. -out of bed to chair -physical therapy -SCDs and Lovenox for VT prophylaxis Quality VTE Deep Vein Thrombosis/Pulmonary Embolism Present on Admission: No
--- NOTE | 2020-06-30 13:49 | PC.NURSE ---
Mildly elevated temp noted. Encouraged deep breathing and incentive spirometer use, education reinforced on deep breathing exercises and splinting, patient breathing shallowly likely related to discomfort. Patient states she feels generally very tired. Sleeping on and off, but easily awakens to voice. Re check temp noted at 98.8, continue to monitor. Call light within reach. Patient denies other needs at this time.
--- NOTE | 2020-06-30 14:44 | CM.DANOTE ---
Patient is a 64 year old female who was admitted on 06/29/20 for SBO. Pt has [employer] for insurance and her PCP is Dr. Ye. EMR was reviewed. Per Surgeon, pt needing exploratory Lap surgery and possible resection and strangulated hernia repair. Pt tolerated procedure well and now with NG tube and ice chips and to ambulate and await bowel function return. PT ordered and pending. SW met briefly bedside with pt and explained role as pt feeling very fatigued and tired today. Pt confirms she lives in [place] with her spouse and is active and independent with ADL's at baseline. Pt works with her and anticipates return home with his assist when medically stable. Plan: SW to follow for ambulation and advancing diet to confirm pt's bowel function returns and can safely d/c home with spouse and any further identified discharge planning needs. GAIL Zuniga Discharge Planning/Care Management CM Discharge Assessment Start: 06/30/20 14:43 Freq: Status: Active Protocol: Document 06/30/20 14:43 BF (Rec: 06/30/20 14:44 BF [id number]) Discharge Planning Assessment Assigned Data Center Engineer GAIL Villalobos DPOA/Assigned Designee Name spouse Luis Enrique Contact Information [phone] Advance Directives? No Advance Directives on File No History Provided By Patient,Medical Record Has Patient been admitted in last 30 No days? Prior Living Arrangements House Household Members spouse Type of transporation used prior to Drives own vehicle admit Independent with ADL's Yes Is patient alert and oriented? Yes Caregiver for Another No Comment Likely home pending PT eval and recommendations Barriers to Discharge No Discharge Plan Home Transportation Arrangement Spouse can provide transport home at d/c Referrals Initiated None needed Review Status In Process Please Provide Date Initial DC 06/30/20 Assessment Was Performed Next Review Type Continued Stay Review
--- NOTE | 2020-06-30 15:58 | PT.IPTN ---
Current Diagnoses Other and unspecified ventral hernia with gangrene (06/29/20) Surgery Performed Operation Date: 06/29/20 15:00 Actual Procedures p Exploratory Laparotomy, small bowel resection - Denis Carter MD Physical Therapy Treatment Note M3 PT-IP Subjective Start: 06/30/20 15:37 Freq: NEEDED Status: Active Protocol: Document 06/30/20 15:37 AB (Rec: 06/30/20 15:58 AB [id number]) Subjective Physical Therapy Visit Type Type Patient Refusal Notes Checked on pt and initially agreed to do PT. obtained home set up and PLOF. checked on MMT but when it's time to mobilize, pt stated that she just cannot do it. stated that she is really tired and it is barely 24 hours since she had surgery. pt agreed to do PT tomorrow. will f/u.
[2020-06-30] MEDS: KETOROLAC 30 MG/ML VIAL IV (18:25)
[2020-07-01 00:10] VITALS: BP 137/77; PULSE 79; RESP 14; TEMP 37; O2SAT 96
[2020-07-01] MEDS: KETOROLAC 30 MG/ML VIAL IV ×5 (00:12→23:54)
--- NOTE | 2020-07-01 03:28 | PC.NURSE ---
Pt resting comfortably w/c/o of mild abdominal pain well controlled w/Tordol. NG tube to LIS w/small amount of greenish/black drainage. 100mL noted drainage from evening shift. Midline dressing is C/D/I Pt us eating a very small amount of ice chips and taking very small sips of water. Bowel tones heard in all quadrants. Pt passing flatus and feels the need to have a BM.
[2020-07-01 04:05] VITALS: BP 135/76; PULSE 77; RESP 18; TEMP 37; O2SAT 94
[2020-07-01] MEDS: SODIUM CHLORIDE 0.9% 1,000 ML 150 ML IV ×2 (04:40→11:48)
[2020-07-01 05:28] LABS: Add Manual Diff / Slide Review NO; Basophils Absolute Auto 0 /uL (0-100); Basophils Percent Auto 0.5 % (0-2); Eosinophils Absolute Auto 100 /uL (0-450); Eosinophils Percent Auto 2.7 % (2-4); Hemoglobin 11.3 g/dL (12.0-16.0); Lymphocytes Absolute Auto 1200 /uL (1100-4500); Lymphocytes Percent Auto 27.9 % (25-40); Mean Corpuscular HGB Conc 34.3 % (30-36); Mean Corpuscular Hemoglobin 30.2 PG (26-34); Mean Corpuscular Volume 88.3 fL (80-100); Monocytes Absolute Auto 300 /uL (0-900); Monocytes Percent Auto 6.9 % (3-14); Neutrophils Absolute Auto 2700 /uL (1500-7000); Platelet Count 173 X10^3/uL (150-400); Red Blood Cell Count 3.74 X10^6/uL (4.0-5.2); Red Cell Distribution Width 12.8 % (11.6-14.8); White Blood Cell Count 4.3 X10^3/uL (4.5-11.0)
[2020-07-01 05:39] LABS: BUN Creatinine Ratio 14.1 (6-22); Blood Urea Nitrogen 11 mg/dL (7-17); Calcium 8.3 mg/dL (8.4-10.2); Carbon Dioxide 24 mmol/L (22-32); Chloride 106 mmol/L (98-107); Estimated Glomerular Filt Rate > 60.0 mL/min (>60); Glucose 103 mg/dL (80-110); HEMOLYSIS < 15 (0-50); Magnesium 1.7 mg/dL (1.6-2.3); Phosphorous 1.9 mg/dL (2.8-4.1); Potassium 3.7 mmol/L (3.4-5.1); Sodium 136 mmol/L (137-145)
[2020-07-01] MEDS: ENOXAPARIN 40 MG/0.4 ML SYRINGE SUBCUT (08:57)
[2020-07-01 09:30] VITALS: BP 151/78; PULSE 73; RESP 17; TEMP 36.6; O2SAT 95
--- NOTE | 2020-07-01 10:13 | PT.IIE ---
Current Diagnoses Other and unspecified ventral hernia with gangrene (06/29/20) Surgery Performed Operation Date: 06/29/20 15:00 Actual Procedures p Exploratory Laparotomy, small bowel resection - Denis Carter MD Surgical History (Last Reviewed 06/29/20 @ 13:41 by Denis Carter MD) History of nephrectomy Status post appendectomy Status post surgery (03/13/10) Medical History (Last Reviewed 06/29/20 @ 13:41 by Denis Carter MD) Controlled type 2 diabetes mellitus (Chronic) History of unilateral nephrectomy (Chronic 02/03/14) Irritable bowel syndrome (Chronic) Malignant neoplasm of kidney (Chronic 02/03/14) Mixed hyperlipidemia (Chronic 04/25/12) Physical Therapy Inpatient Evaluation/Re-Eval M1 PT/OT-IP Prior Functional Status Start: 06/30/20 15:37 Freq: NEEDED Status: Active Protocol: Document 07/01/20 09:42 (Rec: 07/01/20 10:13 [id number]) Medical Review Prior Functional Status Medical History Reviewed Yes Communication able to make needs known Mobility and Gait pt stated that she is independent with all mobilities and ambulation without AD Social History Household Members spouse Living Arrangements House Number of Floors (Floors) Two Floors Number of Stairs To Enter/Railing? stays on main level of the house has 3 steps to enter without rails Home Environment High Toilet,Tub/Shower Additional Social History Comment stated that she and her spouse has a home office stated that her friend works for the [employer] and has access to equipement needs M2 PT-IP Current Condition Start: 06/30/20 15:37 Freq: NEEDED Status: Active Protocol: Document 07/01/20 09:42 (Rec: 07/01/20 10:13 [id number]) Physical Therapy Current Condition Current Condition Evaluation Date 07/01/20 Treatment Diagnosis SBO, s/p ex Lab, generalized weakness Onset Date 06/30/20 Precautions Abdominal Surgery Precautions Log Roll,Lifting Restrictions, Gait Belt above Incisional Area Weight Bearing Status Weight Bearing Status Full Weight Bearing M3 PT-IP Subjective Start: 06/30/20 15:37 Freq: NEEDED Status: Active Protocol: Document 07/01/20 09:42 (Rec: 07/01/20 10:13 [id number]) Subjective Physical Therapy Visit Type Type Initial Evaluation Visit Start Time 09:10 Visit Stop Time 09:30 Total Visit Minutes 20 Notes NG tube in place. TERESA García assisted to clamp NG tube for mobility Number of POWDER CARRIER Visits 0 Physical Therapy Visit Comments Patient Comments Im feeling better today. Patient Goals To regain strength and go home with spouse Therapy Pain Assessment Pain When Pain Assessed During Mobility Pain Present Pain Present Pain Reported Location Abdomen Intensity 4 Scale Used Numeric (0 - 10) Description Acute Pain Management Techniques Timing of Activity with Medications M4 PT-IP Mobility and Gait Start: 06/30/20 15:37 Freq: NEEDED Status: Active Protocol: Document 07/01/20 09:42 (Rec: 07/01/20 10:13 [id number]) PT-Bed Mobility Assessment Rolling Type of Rolling Log Rolling,Roll to Left Level of Assist Minimal Assistance Supine to Sit Supine to Sit Minimal Assistance,Bedrails Scooting Scooting to Edge of Bed Contact Guard Assistance PT-Transfer Assessment Sit to and From Stand Sit to and from Stand Standby Assistance,Use of Upper Extremities Equipment Transfer Assistive Device Gait Belt,Front Wheeled Walker Orthotic/Prosthetic Devices or Brace: No Transfers Transfer Destination Bed,Chair Transfer Technique Stand Step Pivot Transfer Ability Level of Assist Standby Assistance,Use of Upper Extremities Comments Mobility Comments Pt was in bed upon PT and TERESA García arrival. RN assisted in clamping NG tube for mobility . Pt agreed to mobilize with PT. BP in supine = 142/77 SpO2 94%. Educated pt to use log roll to L and she needed min A and L bed rail to roll to L d /t abdominal pain 4/10. She then needed min A for SL to sit followed by scooting towards EOB with SBA. Pt requested for sitting break approx 3 mins d/t weakness. She was able to stand up after with FWW SBA. Pt c/o weakness and only agreed to amb around foot of bed to chair. She amb with FWW SBA steadily without signs of LOB. She was able to safely transfer herself to chair with proper descend and hand placements on chair armrests. Pt then rested comfortably in chair with BP at 151/78 SpO2 at 94%. Call light placed within reach. Gait Assessment Gait Gait Assistance Required: Standby Assistance Distance (Feet) 12 Assistive Devices Assistive Device Gait Belt,Front Wheeled Walker Orthotic/Prosthetic Devices or Brace: No Gait Deviations General Gait Pattern Decreased Stride Length, Decreased Feet Clearance Factors Limiting Gait Function Factors Limiting Gait Function Decreased Activity Tolerance, Decreased Strength,Pain Comments Gait Comments see mobility comments Stair Climbing Assessment Comments Stair Climbing Comments did not assess d/t weakness PT-Balance Assessment Sitting Balance and Reactions Static Sitting Balance Ability Normal Dynamic Sitting Balance Ability Good Standing Balance and Reactions Static Standing Balance Ability Good Dynamic Standing Balance Ability Good Device Used FWW M5 PT-IP Objective Assessments Start: 06/30/20 15:37 Freq: NEEDED Status: Active Protocol: Document 07/01/20 09:42 (Rec: 07/01/20 10:13 [id number]) Orientation Orientation/Cognition Level of Alertness Alert Orientation Name,Age,Birthday,Month,Date, Year,Day of Week,Place, Situation Language Function Ability No Deficits Noted Safety Awareness Understands Safety Issues Memory Description No Deficits Noted Gross Range of Motion Upper Extremity ROM Assessment Within Functional Limits Lower Extremity ROM Assessment Within Functional Limits Strength Upper Extremity Strength Assessment Within Functional Limits Lower Extremity Strength Assessment Bilaterally Impaired Hip 4/5 Knee 4/5 Ankle 4/5 Sensation Assessment Sensation Gross Sensation WNL Muscle Tone Muscle Tone WNL Yes M6 PT-IP Treatment Start: 06/30/20 15:37 Freq: NEEDED Status: Active Protocol: Document 07/01/20 09:42 (Rec: 07/01/20 10:13 [id number]) Physical Therapy Treatment Education Education Provided Safety M7 PT-IP Assessment and Plan Start: 06/30/20 15:37 Freq: NEEDED Status: Active Protocol: Document 07/01/20 09:42 (Rec: 07/01/20 10:13 [id number]) PT Summary Assessment and Plan Potential Rehabilitation Potential Excellent Status of Condition at Evaluation Stable Summary Impairments Pain,Strength,Bed Mobility, Transfers,Gait,Activity Tolerance Assessment Summary This is a low complexity evaluation for this 64 yo female admitted to d/t SBO and undergone exploratory laparotomy. Pt's PLOF = completely independent without using AD. Upon assessment, pt appeared to be very weak and needed min A for bed mobility and FWW for mobility. There's no signs of LOB except significant weakness who is only able to mine walking from bed to chair. Pt stated she has not eaten since Keisha. However, pt should recover fast once her bowel function returns and expect to d/c home with spouse assistance if needed. Goals Bed Mobility Goal Independent Transfer Goal Independent Gait Goal Independent Gait Distance 200 Other Goals up/down 3 NAHEED without rails. Days to Meet Goals 10 Frequency of Treatment Frequency Of Treatment Once a Day Treatment Plan Physical Therapy Treatment Plan Bed Mobility Training,Transfer Training,Gait Training, Therapeutic Exercise,Balance Retraining,Post Op Education, Discharge Planning, Neuromuscular Re-ed Other Recommendations and Next Treatment check vital signs Focus mobility as mine with LRAD steps climbing if possible Recommendations To Nursing Amount of Assist Needed Standby Assistance Discharge Recommendations PT Discharge Recommendations Home with Assistance Equipment Needed for Home Before FWW, shower chair, BSC depends Discharge on pt's progress. Transportation Needs at Discharge Private Vehicle
[2020-07-01 12:41] VITALS: BP 138/72; PULSE 76; RESP 16; TEMP 36.4; O2SAT 96
[2020-07-01] MEDS: MAGNESIUM SULFATE 2 GM/50 ML PIGGYBACK IV (12:41)
[2020-07-01] MEDS: KCL 40 MEQ IN NS 1,000 ML 125 MEQ IV ×2 (12:41→21:55)
--- NOTE | 2020-07-01 13:15 | P.PN_ITS ---
Subjective Subjective Date Patient Seen: 07/01/20 Time Patient Seen: 13:15 Interval history: No acute events overnight. Patient is passing gas. Has been ambulating. Exam Vital Signs (past 8 hours): - 07/01/20 09:30 07/01/20 12:41 Temperature 97.8 F 97.6 F Pulse Rate 73 76 Respiratory Rate 17 16 Blood Pressure 151/78 H 138/72 Pulse Oximetry 95 96 Oxygen Delivery Method Nasal Cannula Oxygen Flow Rate 0 Narrative Exam Narrative: GENERAL: Alert, comfortable. Appears stated age. Answers questions promptly and appropriately. Vital signs noted. CARDIOVASCULAR: Regular rate. No pedal edema. RESPIRATORY: Non-tachypneic, breathing comfortably on room air. GASTROINTESTINAL: Abdomen soft, rounded, appropriate tenderness to palpation, incision clean dry and intact without cellulitis MUSCULOSKELETAL: Equal tone and mass bilaterally. SKIN: Warm, dry, soft, appropriate color for ethnicity. No other lesions, rashes, or wounds. Objective Labs Result Diagrams: 07/01/20 05:05 07/01/20 05:05 Labs: Laboratory Results - last 24 hr 07/01/20 07/01/20 05:05 05:05 WBC 4.3 L RBC 3.74 L Hgb 11.3 L Hct 33.0 L MCV 88.3 MCH 30.2 MCHC 34.3 RDW 12.8 Plt Count 173 Neut % (Auto) 62.0 Lymph % (Auto) 27.9 [place] % (Auto) 6.9 Eos % (Auto) 2.7 Baso % (Auto) 0.5 Neut # (Auto) 2700 Lymph # (Auto) 1200 [place] # (Auto) 300 Eos # (Auto) 100 Baso # (Auto) 0 Sodium 136 L Potassium 3.7 Chloride 106 Carbon Dioxide 24 BUN 11 Creatinine 0.78 Estimated GFR > 60.0 BUN/Creatinine Ratio 14.1 Glucose 103 Calcium 8.3 L Phosphorus 1.9 L D Magnesium 1.7 Assessment & Plan Assessment & Plan narrative: 64-year-old woman postop day 2 status post ex lap and bowel resection for obstruction involving ventral hernia. She started passing gas last evening, and is still passing gas today. NG tube was removed during exam today. Will start her on clears, and advance as tolerated. DVT prophylaxis, Toradol for pain, recheck labs daily, replete electrolytes, ambulate frequently, clear liquid diet Quality VTE Deep Vein Thrombosis/Pulmonary Embolism Present on Admission: No
--- NOTE | 2020-07-01 13:44 | CM.DPC ---
DCP Cont: Per MD, pt making medical progress and NG tube discontinued and will begin advancing diet slowly and ambulate more and wait for bowel function to return. Per PT, recommending safe d/c home and r/o HH pending pt progress. SW met bedside with pt and spouse and explained role again and pt confirms that she feels much better with NG tube out and felt alright with minimal ambulation with PT today. Spouse works from his office at home and will be available for assist and also states they have very supportive neighbors/friends that are available if needed. Both pt and spouse do not anticipate any needs at d/c and pt so far eating jello and able to tolerate so far. Plan: SW to follow for advancing diet towards plan of likely home with spouse assist when stable and any further identified needs. GAIL Zuniga
[2020-07-01 15:15] VITALS: BP 148/75; PULSE 73; RESP 18; TEMP 36.2; O2SAT 94
[2020-07-01 19:57] VITALS: BP 149/80; PULSE 74; RESP 16; TEMP 36.6; O2SAT 93
[2020-07-02 00:23] VITALS: BP 135/75; PULSE 75; RESP 18; TEMP 36.4; O2SAT 92
[2020-07-02 03:29] VITALS: BP 143/77; PULSE 66; RESP 18; TEMP 36.6; O2SAT 95
[2020-07-02] MEDS: KETOROLAC 30 MG/ML VIAL IV ×3 (05:02→18:58)
--- NOTE | 2020-07-02 05:20 | PC.NURSE ---
Pt c/o her hands feeling stiff. Lung bases have fine crackles. No other s/s of fluid overload present. IV fluids reduced to TKO, will pass on to day shift. Pt up in recliner chair, encouraged to use IS and practice deep breathing. Pt feels urge to have a BM, but has not produced one yet. Passing flatus. Abdomen is somewhat distended but, pt notes, she does not feel uncomfortable. Dressing c/d/i. Tolerating clear diet well.
[2020-07-02 05:41] LABS: Add Manual Diff / Slide Review NO; Basophils Absolute Auto 0 /uL (0-100); Basophils Percent Auto 0.6 % (0-2); Eosinophils Absolute Auto 100 /uL (0-450); Eosinophils Percent Auto 3.6 % (2-4); Hematocrit 30.2 % (36-46); Hemoglobin 10.3 g/dL (12.0-16.0); Lymphocytes Absolute Auto 900 /uL (1100-4500); Lymphocytes Percent Auto 33.4 % (25-40); Mean Corpuscular HGB Conc 34.2 % (30-36); Mean Corpuscular Hemoglobin 30.1 PG (26-34); Monocytes Absolute Auto 200 /uL (0-900); Monocytes Percent Auto 7.1 % (3-14); Neutrophils Absolute Auto 1500 /uL (1500-7000); Neutrophils Percent Auto 55.3 % (50-75); Platelet Count 147 X10^3/uL (150-400); Red Blood Cell Count 3.44 X10^6/uL (4.0-5.2); Red Cell Distribution Width 12.8 % (11.6-14.8); White Blood Cell Count 2.7 X10^3/uL (4.5-11.0)
[2020-07-02 05:55] LABS: BUN Creatinine Ratio 12.3 (6-22); Blood Urea Nitrogen 9 mg/dL (7-17); Calcium 8.4 mg/dL (8.4-10.2); Carbon Dioxide 27 mmol/L (22-32); Chloride 110 mmol/L (98-107); Estimated Glomerular Filt Rate > 60.0 mL/min (>60); Glucose 109 mg/dL (80-110); HEMOLYSIS < 15 (0-50); Magnesium 2.2 mg/dL (1.6-2.3); Phosphorous 1.6 mg/dL (2.8-4.1); Potassium 4.2 mmol/L (3.4-5.1); Sodium 138 mmol/L (137-145)
[2020-07-02 08:00] VITALS: BP 143/78; PULSE 63; RESP 17; TEMP 36.4; O2SAT 94
[2020-07-02] MEDS: ENOXAPARIN 40 MG/0.4 ML SYRINGE SUBCUT (08:58)
--- NOTE | 2020-07-02 10:14 | PT.IPTN ---
Current Diagnoses Other and unspecified ventral hernia with gangrene (06/29/20) Surgery Performed Operation Date: 06/29/20 15:00 Actual Procedures p Exploratory Laparotomy, small bowel resection - Denis Carter MD Physical Therapy Treatment Note M2 PT-IP Current Condition Start: 06/30/20 15:37 Freq: NEEDED Status: Active Protocol: Document 07/01/20 09:42 HH (Rec: 07/01/20 10:13 HH [id number]) Physical Therapy Current Condition Current Condition Evaluation Date 07/01/20 Treatment Diagnosis SBO, s/p ex Lab, generalized weakness Onset Date 06/30/20 Precautions Abdominal Surgery Precautions Log Roll,Lifting Restrictions, Gait Belt above Incisional Area Weight Bearing Status Weight Bearing Status Full Weight Bearing M3 PT-IP Subjective Start: 06/30/20 15:37 Freq: NEEDED Status: Active Protocol: Document 07/02/20 09:51 KS (Rec: 07/02/20 11:21 KS [id number]) Subjective Physical Therapy Visit Type Type Treatment Note Visit Start Time 09:51 Visit Stop Time 10:14 Total Visit Minutes 23 Number of DIALYSIS CLINICAL MANAGER Visits 1 Physical Therapy Visit Comments Patient Comments Im feeling better today. Patient Goals To regain strength and go home with spouse M4 PT-IP Mobility and Gait Start: 06/30/20 15:37 Freq: NEEDED Status: Active Protocol: Document 07/02/20 09:51 KS (Rec: 07/02/20 11:21 KS [id number]) PT-Bed Mobility Assessment Scooting Scooting to Edge of Bed Standby Assistance PT-Transfer Assessment Sit to and From Stand Sit to and from Stand Standby Assistance,Use of Upper Extremities Equipment Transfer Assistive Device Gait Belt,Front Wheeled Walker Orthotic/Prosthetic Devices or Brace: No Transfers Transfer Destination Chair Transfer Technique pt ambulated w/ FWW Transfer Ability Level of Assist Standby Assistance,Use of Upper Extremities Comments Mobility Comments Pt in chair w/ spouse present upon arrival from PT. Pt SBA for sit<>stand from chair w/ FWW. Pt then ambulated ~100 ft to stairs SBA to CGA w/ FWW. Pt ascended/descended 3 steps w/o rails and SBA w/ step to step pattern. Pt then ambulated additional ~100 ft back to room w/ FWW and returned to chair all SBA. Pt demonstrated proper use of FWW and did not require cues. Pts spouse was present throughout treatment and both pt and spouse feel they are safe to complete steps at home, which they state are wider and shorter therefore even easier to navigate. Gait Assessment Gait Gait Assistance Required: Standby Assistance,Contact Guard Assist Distance (Feet) 200 Assistive Devices Assistive Device Gait Belt,Front Wheeled Walker Orthotic/Prosthetic Devices or Brace: No Gait Deviations General Gait Pattern Decreased Stride Length, Decreased Feet Clearance Factors Limiting Gait Function Factors Limiting Gait Function Decreased Activity Tolerance, Decreased Strength,Pain Comments Gait Comments Pt ambulated ~200 ft w/ FWW and SBA to CGA and IV pole management. Pt ambulated w/ decreased stride length and foot clearance d/t guarding and weakness. Pt took 2x short standing rest breaks after completing stairs d/t reported slight fatigue. She demonstrated proper use of FWW throughout treatment. Stair Climbing Assessment Evaluation Level of Assist On Stairs Standby Assistance Devices Stair Climbing Assistive Devices None Technique/Endurance Stair Climbing Direction Ascend and Descend Stair Climbing Technique Step to Step Number of Steps Climbed 3 Stair Climbing Set # Repetitions (reps) 1 Comments Stair Climbing Comments Pt ascended/descended 3 steps w/ step to pattern and SBA w/o cues. After completing steps, pt stated that her steps at home are wider and shorter and that she could fit her FWW on them. Pt states she will be able to perform steps at home easily. PT-Balance Assessment Sitting Balance and Reactions Static Sitting Balance Ability Normal Dynamic Sitting Balance Ability Good Standing Balance and Reactions Static Standing Balance Ability Good Dynamic Standing Balance Ability Good Device Used FWW M5 PT-IP Objective Assessments Start: 06/30/20 15:37 Freq: NEEDED Status: Active Protocol: Document 07/01/20 09:42 (Rec: 07/01/20 10:13 [id number]) Orientation Orientation/Cognition Level of Alertness Alert Orientation Name,Age,Birthday,Month,Date, Year,Day of Week,Place, Situation Language Function Ability No Deficits Noted Safety Awareness Understands Safety Issues Memory Description No Deficits Noted Gross Range of Motion Upper Extremity ROM Assessment Within Functional Limits Lower Extremity ROM Assessment Within Functional Limits Strength Upper Extremity Strength Assessment Within Functional Limits Lower Extremity Strength Assessment Bilaterally Impaired Hip 4/5 Knee 4/5 Ankle 4/5 Sensation Assessment Sensation Gross Sensation WNL Muscle Tone Muscle Tone WNL Yes M6 PT-IP Treatment Start: 06/30/20 15:37 Freq: NEEDED Status: Active Protocol: Document 07/02/20 09:51 KS (Rec: 07/02/20 11:21 KS [id number]) Physical Therapy Treatment Education Education Provided Safety M7 PT-IP Assessment and Plan Start: 06/30/20 15:37 Freq: NEEDED Status: Active Protocol: Document 07/02/20 09:51 KS (Rec: 07/02/20 11:21 KS [id number]) PT Summary Assessment and Plan Potential Rehabilitation Potential Excellent Status of Condition at Evaluation Stable Summary Impairments Pain,Strength,Bed Mobility, Transfers,Gait,Activity Tolerance Progress Towards Goals Progressing Toward Goals Assessment Summary Pt did well w/ transfers, ambulation, and stair training today. She had good safety awareness and was able to tolerate ~200 ft ambulation w/ FWW and CBA to CGA and 3 steps w/o rails SBA. Pt is reporting slight fatigue and weakness, but stated she has a friend who can bring FWW for home use. Spouse will be able to assist pt at home as needed . Goals Bed Mobility Goal Independent Transfer Goal Independent Gait Goal Independent Gait Distance 200 Other Goals up/down 3 NAHEED without rails. Days to Meet Goals 10 Frequency of Treatment Frequency Of Treatment Once a Day Treatment Plan Physical Therapy Treatment Plan Bed Mobility Training,Transfer Training,Gait Training, Therapeutic Exercise,Balance Retraining,Post Op Education, Discharge Planning, Neuromuscular Re-ed Other Recommendations and Next Treatment Bed mobility, check vital Focus signs mobility as mine with LRAD steps climbing if possible Recommendations To Nursing Amount of Assist Needed Standby Assistance Discharge Recommendations PT Discharge Recommendations Home with Assistance Equipment Needed for Home Before FWW, shower chair, BSC depends Discharge on pt's progress. Transportation Needs at Discharge Private Vehicle
--- NOTE | 2020-07-02 10:58 | P.PN_ITS ---
Subjective Subjective Date Patient Seen: 07/02/20 Time Patient Seen: 10:58 Interval history: The patient feels much better than she has. She has been belching a lot and has been passing some flatus. No bowel movements. Feels very distended. Feels like she has a lot of fluid in swelling in her hands. She says she feels like the claudine gamez boy. Exam Vital Signs (past 8 hours): - 07/02/20 03:29 07/02/20 08:00 Temperature 97.9 F 97.6 F Pulse Rate 66 63 Respiratory Rate 18 17 Blood Pressure 143/77 H 143/78 H Pulse Oximetry 95 94 Oxygen Delivery Method Room Air Oxygen Flow Rate 0 Narrative Exam Narrative: Cooperative in no apparent distress. Slight decreased air movement in the bases but I do hear air movement into the bases. Her respiratory effort however is somewhat weak. She is clear anteriorly. Heart regular rate and rhythm without murmur gallop. Abdomen is distended soft. Her incision is intact. There is some bruising. None of this is unexpected. There is no cellulitis. Very active bowel sounds. Objective Labs Result Diagrams: 07/02/20 05:23 07/02/20 05:23 Labs: Laboratory Results - last 24 hr 07/02/20 07/02/20 05:23 05:23 WBC 2.7 L RBC 3.44 L Hgb 10.3 L Hct 30.2 L MCV 88.0 MCH 30.1 MCHC 34.2 RDW 12.8 Plt Count 147 L Neut % (Auto) 55.3 Lymph % (Auto) 33.4 [place] % (Auto) 7.1 Eos % (Auto) 3.6 Baso % (Auto) 0.6 Neut # (Auto) 1500 Lymph # (Auto) 900 L [place] # (Auto) 200 Eos # (Auto) 100 Baso # (Auto) 0 Sodium 138 Potassium 4.2 Chloride 110 H Carbon Dioxide 27 BUN 9 Creatinine 0.73 Estimated GFR > 60.0 BUN/Creatinine Ratio 12.3 Glucose 109 Calcium 8.4 Phosphorus 1.6 L Magnesium 2.2 Assessment & Plan Post-op Postoperative Procedures: Procedures Operation Date: 06/29/20 15:00 Actual Procedures Side Surgeon p Exploratory Laparotomy, small bowel resection Denis Carter MD Postoperative status narrative: Fairly normal postoperative course given her operative findings. She does have anemia that is probably a combination of acute blood loss from the operation and fluid sequestration. She has not yet completely opened up and is quite distended so I will not advance her diet further. Will give her suppository to see if we can stimulate the function of her colon. She appears to be tolerating p.o. well so I will stop her IV fluids right now. However will not hesitate to start them back should there be any rev ersal of her condition. She may shower. Continue DVT prophylaxis.. Postoperative plan narrative: See above Quality VTE Deep Vein Thrombosis/Pulmonary Embolism Present on Admission: No
[2020-07-02] MEDS: BISACODYL 10 MG SUPP PR (11:20)
[2020-07-02 11:37] VITALS: BP 149/89; PULSE 64; RESP 18; TEMP 36.4; O2SAT 97
[2020-07-02 15:47] VITALS: BP 142/84; PULSE 71; RESP 16; TEMP 36.5; O2SAT 96
[2020-07-02 20:22] VITALS: BP 152/85; PULSE 63; RESP 16; TEMP 36.5; O2SAT 97
[2020-07-03] MEDS: KETOROLAC 30 MG/ML VIAL IV ×2 (00:07→06:37)
[2020-07-03 00:10] VITALS: BP 152/86; PULSE 61; RESP 16; TEMP 36.8; O2SAT 94
[2020-07-03 04:30] VITALS: BP 153/80; PULSE 58; RESP 16; TEMP 36.7; O2SAT 96
[2020-07-03 07:55] VITALS: BP 134/77; PULSE 53; RESP 16; TEMP 36.3; O2SAT 97
--- NOTE | 2020-07-03 10:32 | PT-IP ANOTE ---
Pt refused ambulation in hallway as she just finished walking the N nurse's station with . Scheduled to DC home today
--- NOTE | 2020-07-03 12:10 | PM.DS.1 ---
History of Present Illness History of Present Illness Chief complaint: Gastric distress x1 day Narrative: 64-year-old female seen in consultation for a small-bowel obstruction. For the past 24 hours she has had abdominal pain bloating nausea and emesis. CT abdomen pelvis demonstrates small bowel obstruction with a transition point within a ventral hernia. On admission she is afebrile white blood count 7. She has never had a previous bowel obstruction she does have multiple prior abdominal surgeries. She has history of renal cell carcinoma status post unilateral nephrectomy, appendectomy, laparoscopy for endometriosis. Medical history relevant for noninsulin dependent diabetes. She is a nonsmoke, not anticoagulated takes aspirin daily Discharge Providers Provider Date of admission: 06/29/20 10:31 Discharge Date: 07/03/20 Primary care physician: Damaso Ye MD Consults: 06/30/20 09:56 Consult to Physical Therapy Evaluate & Treat Comment: Physician Instructions: Evaluate and Treat Discharge provider: Denis Carter MD Summary Hospital Course Discharge Diagnosis: strangulated ventral hernia ischemic small bowel post operative ileus small bowel obstruction Hospital Course: The patient was taken to the operating room 06/29/20 underwent exploratory laparotomy small bowel resection for a knuckle of ischemic small bowel within a strangulated ventral hernia. She had a small-bowel resection and a [id number] small bowel anastomosis. Her postoperative course was remarkable only for postoperative ileus. Once her ileus resolved her diet was advanced as tolerated. On the date of discharge 07/03 she is tolerant of regular diet having bowel movements and passing flatus her abdomen is soft nondistended appropriately tender to palpation. Status at Discharge Cognitive/behavioral status at discharge: oriented Functional status at discharge: independent ambulation Overall status at discharge: patient is back to baseline Time Spent with Patient Time spent: Greater than 30 minutes Exam Vital Signs (past 8 hours): - 07/03/20 04:30 07/03/20 07:55 Temperature 98.0 F 97.4 F L Pulse Rate 58 L 53 L Respiratory Rate 16 16 Blood Pressure 153/80 H 134/77 Pulse Oximetry 96 97 Oxygen Delivery Method Room Air Oxygen Flow Rate 0 Narrative Exam Narrative: General adult female alert oriented no acute distress Abdomen soft nontender incision clean dry intact with andrés. Extremities warm well perfused Objective Labs Result Diagrams: 07/02/20 05:23 07/02/20 05:23 Discharge Plan Discharge Plan Patient Disposition: Home Discharge orders & Medications Prescriptions: New oxycodone 5 mg tablet 5 mg PO Q6H PRN (Reason: pain) Qty: 20 RF: 0 Continued calcium carbonate [Calcium 600] 600 mg calcium (1,500 mg) tablet 600 mg PO DIRECTED RF: 0 aspirin 81 MG tablet,delayed release (DR/EC) 81 mg PO QDAY Qty: 30 RF: 0 multivitamin [Multiple Vitamins] 1 EACH tablet 1 tab PO QDAY Qty: 0 RF: 0 cholecalciferol (vitamin D3) 5,000 UNIT capsule 5,000 unit PO BID Qty: 0 RF: 0 magnesium oxide 400 MG capsule 200 mg PO DAILY Qty: 0 RF: 0 [TURMERIC] 1 tab PO BID Qty: 0 RF: 0 Follow up/Referrals: Damaso Ye MD [Primary Care Provider] - Denis Carter MD [Physician] - Diet/Activity/Treatments Diet: Regular Activity: No lifting >20 lbs x 4 weeks. Walking only for exercise for 4 weeks[address] while taking narcotics. Skin/Wound/Dressing Care Report to your healthcare provider any signs of infection, such as:: chills, fever, increased pain, unusual drainage and unusual redness Visit Report/Discharge Packet Instructions: Small Bowel Obstruction, DI for Small Bowel Obstruction, How to Prevent Falls, Stool Softeners, Acetaminophen, [facility]: Wound Care Stand Alone Forms: Surgery Discharge Visit Report Forms: Patient Portal/API, Stroke Signs & Symptoms Discharge Data Primary Care Provider: Damaso Ye Quality VTE Deep Vein Thrombosis/Pulmonary Embolism Present on Admission: No
--- NOTE | 2020-07-03 13:25 | PC.NURSE ---
Day shift: Paperwork signed and all questions answered. Pt has all personal belonings. MD scripts sent to her pharmacy electronic by . TOlerated a few bites of her regular lunch but wants to go very slow with the food intake. Taken to car by this flex o writer operator via WC. She tolerated well. Her spouse will drive her home. Wound remains well approximated w/ no s/s of infection or drainage.
== END 2020-07-03 13:27 | disposition home or self-care (01) | DRG 330 ==
LOC: ED 10:29 → AC 10:32
PROVIDERS: Admitting Provider Surgery; Emergency Provider Emergency Medicine; PCP Family Medicine; Referring Provider Emergency Medicine; Visit Provider Surgery
PROC: 0DB80ZZ Excision of Small Intestine, Open Approach (ICD-10-PCS; CPT 49000; principal; 2020-06-29 15:00)
DX: K43.7 Other and unspecified ventral hernia with gangrene (principal); D62 Acute posthemorrhagic anemia; K56.7 Ileus, unspecified; E78.2 Mixed hyperlipidemia; Z85.528 Personal history of other malignant neoplasm of kidney; Z11.59 Encounter for screening for other viral diseases
CPT/HCPCS: 36415; 36592; 74018; 74176; 80048; 80053; 83690; 83735; 84100; 85025; 85610; 85730; 87635; 93005; 93010; 96361; 96374; 96375; 97116; 97161; 97530; 99285; J0330; J0690; J1100; J1650; J1885; J2270; J2405; J2543; J2704; J3010; J3480

== ENCOUNTER → 2020-09-13 07:45 | Outpatient (CLI) | payer OTHER, SELFPAY ==
[2020-06-29 11:48] VITALS: BMI 29.9
[2020-09-13 09:36] LABS: Alanine Aminotransferase 41 IU/L (<35); Albumin 4.4 g/dL (3.5-5.0); Albumin Globulin Ratio 1.5 (1.0-2.8); Alkaline Phosphatase 69 U/L (38-126); Aspartate Aminotransferase 35 IU/L (14-36); Bilirubin Total 0.5 mg/dL (0.2-1.3); Blood Urea Nitrogen 21 mg/dL (7-17); Carbon Dioxide 28 mmol/L (22-32); Chloride 104 mmol/L (98-107); Cholesterol 235 mg/dL (140-199); Estimated Glomerular Filt Rate > 60.0 mL/min (>60); Globulin 2.9 g/dL (1.7-4.1); Glucose 166 mg/dL (80-110); HDL Cholesterol 43 mg/dL (40-60); HEMOLYSIS < 15 (0-50); LDL Cholesterol Calculated 142 mg/dL (<100); Potassium 4.3 mmol/L (3.4-5.1); Sodium 138 mmol/L (137-145); Total Protein 7.3 g/dL (6.3-8.2); Triglycerides 249 mg/dL (35-150)
[2020-09-13 09:40] LABS: Add Manual Diff / Slide Review NO; Basophils Absolute Auto 0 /uL (0-100); Basophils Percent Auto 0.9 % (0-2); Eosinophils Absolute Auto 100 /uL (0-450); Eosinophils Percent Auto 2.8 % (2-4); Hematocrit 37.8 % (36-46); Hemoglobin 12.8 g/dL (12.0-16.0); Lymphocytes Absolute Auto 1800 /uL (1100-4500); Lymphocytes Percent Auto 50.5 % (25-40); Mean Corpuscular HGB Conc 33.9 % (30-36); Mean Corpuscular Hemoglobin 29.6 PG (26-34); Mean Corpuscular Volume 87.4 fL (80-100); Monocytes Absolute Auto 300 /uL (0-900); Monocytes Percent Auto 8.4 % (3-14); Neutrophils Absolute Auto 1300 /uL (1500-7000); Neutrophils Percent Auto 37.4 % (50-75); Platelet Count 206 X10^3/uL (150-400); Red Blood Cell Count 4.32 X10^6/uL (4.0-5.2); Red Cell Distribution Width 13.2 % (11.6-14.8); White Blood Cell Count 3.5 X10^3/uL (4.5-11.0)
[2020-09-13 10:26] LABS: TSH w/ Reflex to FT4 3.35 uIU/mL (0.47-4.68)
[2020-09-13 11:05] LABS: Creatinine Urine Random 101.1 mg/dL
[2020-09-13 11:10] LABS: Microalbumi Creatinin Ratio Ur 20.7 ug/mg CR (<30); Microalbumin Urine Random 2.1 mg/dL (0-1.6)
== END ==
PROVIDERS: PCP Family Medicine; Referring Provider Family Medicine; Visit Provider Family Medicine
DX: E11.9 Type 2 diabetes mellitus without complications (principal); E78.2 Mixed hyperlipidemia
CPT/HCPCS: 36415; 80053; 80061; 82043; 82570; 83036; 84443; 85025

== ENCOUNTER → 2020-12-17 10:38 | Outpatient (CLI) | payer OTHER, SELFPAY ==
[2020-06-29 11:48] VITALS: BMI 29.9
[2020-12-17 14:52] LABS: COVID19 -Nasal RAPID Negative (Negative)
== END ==
PROVIDERS: PCP Family Medicine; Visit Provider Nurse Practitioner
DX: Z01.812 Encounter for preprocedural laboratory examination (principal); Z20.822 Contact with and (suspected) exposure to COVID-19
CPT/HCPCS: 87635

== ENCOUNTER 2020-12-19 07:35 | Day surgery (SDC) | payer OTHER, SELFPAY ==
[2020-06-29 11:48] VITALS: BMI 29.9
[2020-12-19] MEDS: LACTATED RINGERS 1,000 ML 200 ML IV (08:03)
[2020-12-19 08:04] VITALS: BP 152/76; PULSE 80; RESP 16; TEMP 36.1; O2SAT 99; BMI 30.7
--- NOTE | 2020-12-19 08:23 | PM.HP.1 ---
History of Present Illness History of Present Illness Date Patient Seen: 12/19/20 Time Patient Seen: 08:23 Chief complaint: SDC Narrative: The patient presents for colorectal sreening. She had previous colonoscopy 5 years ago significant for benign polyps. No personal or family history of colon cancer. On further history denies any recent gastrointestinal symptoms. No nausea, vomiting, abdominal pain, loss of appetite, unexplained weight loss, change in bowel habits, diarrhea, constipation, melena, hematochezia, or bright red blood per rectum. Patient History Medical History Controlled type 2 diabetes mellitus History of unilateral nephrectomy (02/03/14) Irritable bowel syndrome Malignant neoplasm of kidney (02/03/14) Mixed hyperlipidemia (04/25/12) Surgical History History of nephrectomy Status post appendectomy Status post surgery (03/13/10) Family & Social History Social History: household members spouse Tobacco & Substance use: Smoking Status Never smoker alcohol intake current alcohol intake frequency 0-2 drinks per day Substance Use Type does not use Meds Home Medications and Allergies Home Medications Medication Instructions Recorded Confirmed Type aspirin 81 mg PO QDAY #30 tab 09/10/16 12/19/20 History [TURMERIC] 1 tab PO BID #0 09/11/17 12/19/20 History cholecalciferol (vitamin D3) 15,000 unit PO BID #0 09/11/17 12/19/20 History magnesium oxide 250 mg PO DAILY #0 09/11/17 12/19/20 History multivitamin [Multiple Vitamins] 1 tab PO QDAY #0 09/11/17 12/19/20 History calcium carbonate 600 mg calcium 600 mg PO DIRECTED 01/21/20 12/19/20 History (1,500 mg) tablet antiarthritic combination no.2 900 900 mg PO BID 09/15/20 12/19/20 History mg tablet chromium picolinate 200 mcg tablet 200 mcg PO DAILY 09/15/20 12/19/20 History omega-3 fatty acids 1,000 mg 1,400 mg PO DAILY 09/15/20 12/19/20 History capsule metformin 1,000 mg tablet 1,000 mg PO BIDCC #180 tab 11/21/20 12/19/20 Rx Allergies Allergy/AdvReac Type Severity Reaction Status Date / Time No Known Drug Allergies Allergy Verified 09/15/20 10:44 Review of Systems Review of Systems ROS: Yes All systems reviewed with the patient and are negative except as otherwise documented Exam Vital Signs (past 8 hours): - 12/19/20 08:04 Temperature 96.9 F L Pulse Rate 80 Respiratory Rate 16 Blood Pressure 152/76 H Pulse Oximetry 99 Oxygen Delivery Method Room Air Oxygen Flow Rate 0 Narrative Exam Narrative: General-no acute distress, well nourished adult female HEENT-moist mucous membranes, no scleral icterus Neck-supple, no lymphadenopathy Chest- non labored respirations, clear to auscultation bilaterally Cardiac-regular rate no peripheral edema Abdomen-soft, nontender, non distended Extremities-warm, well perfused Neurological-alert and oriented, no focal deficits Assessment & Plan Assessment & Plan narrative: The patient requires colorectal screening and colonoscopy is recommended. Technical details were discussed. Risks, benefits, alternatives explained. Risks including but not limited to myocardial infarction, aspiration, bleeding, pain, missed lesion, incomplete examination, need for further radiographic studies, colonic perforation, and need for major abdominal surgery were discussed. All questions were answered to their satisfaction, and they are in agreement with this plan.
[2020-12-19] MEDS: fentaNYL 250 MCG/5 ML INJ IV (08:33)
[2020-12-19] MEDS: MIDAZOLAM 5 MG/5 ML VIAL IV (08:34)
--- NOTE | 2020-12-19 08:37 | SUR.OPER ---
VERSED 4 MG , FENTANYL 100MCG GIVEN AT 0830, PATIENT TOLERATED WELL SLEEPY BUT ROUSES TO VERBAL STIMULI
--- NOTE | 2020-12-19 08:46 | SUR.OPER ---
OXYGEN INCREASED TO 8 L/ MIN THROUGH OUT PROCEDURE.. TOLERATED WELL
--- NOTE | 2020-12-19 08:50 | P.OP.ENDO_ITS ---
Operative Date/Time/Diagnoses Date of procedure: 12/19/20 Time of procedure: 08:50 Pre-op diagnosis: Personal history of colonic polyps Post-op diagnosis: same Procedure & Clinicians Study performed: Colonoscopy Same procedure as scheduled: Yes Indications: 65-year-old female last colonoscopy 5 years ago personal history of colonic polyps Surgeon: Denis Carter Procedure Notes Procedure in detail: Medications: Conscious sedation using 4mg IV midazolam and 100mcg IV of fentanyl The history and physical was performed/updated and the patient is ASA class is 2. The procedure was discussed in detail with the patient. Potential risks com plications including infection, bleeding, missed diagnosis, perforation, need for surgery, and were explained. Their questions were answered and informed consent was obtained. Patient was brought to the procedure room and placed standard monitoring equipment. The patient's vital signs were monitored continuously throughout the entire procedure. Prior to starting time-out was performed. The patient was placed in the left lateral recumbent position. Procedural sedation was administered. Examination began with a thorough inspection of the perianal area there was no evidence of fissures, fistulae, external hemorrhoids or cutaneous malignancy. The colonoscopy scope was then placed into the anal canal and was advanced to the cecum, which was identified by the ileocecal valve, the appendiceal orifice and the confluence of the taenia. The scope was then slowly withdrawn examining colon thoroughly in all directions, irrigating it of any residual stool. No masses or polyps Pat diverticulosis The patient tolerated the procedure well. They will be discharged once criteria are met. The prep was of good/excellent quality. The withdrawl time was 7 minutes. The sedation time was 20 minutes. Specimen(s): none sent Complications: none Impression: Normal colonoscopy Post-procedure Recommendations: Colonscopy in 10 years Disposition: same day surgery
[2020-12-19 08:52] VITALS: BP 108/61; PULSE 66; RESP 16; TEMP 36.7; O2SAT 96
[2020-12-19 08:56] VITALS: BP 105/60; PULSE 67; RESP 13; O2SAT 95
[2020-12-19 09:01] VITALS: BP 101/58; PULSE 63; RESP 13; O2SAT 96
[2020-12-19 09:16] VITALS: BP 104/64; PULSE 64; RESP 15; O2SAT 94
[2020-12-19 09:30] VITALS: BP 126/78; PULSE 74; RESP 16; TEMP 36.6; O2SAT 99
== END 2020-12-19 09:40 | disposition home or self-care (01) ==
PROVIDERS: PCP Family Medicine; Referring Provider Surgery; Visit Provider Surgery
PROC: 0DJD8ZZ Inspection of Lower Intestinal Tract, Via Natural or Artificial Opening Endoscopic (ICD-10-PCS; CPT 45378; principal; 2020-12-19 08:30)
DX: Z12.11 Encounter for screening for malignant neoplasm of colon (principal); Z86.010 Personal history of colon polyps; E11.9 Type 2 diabetes mellitus without complications; Z79.84 Long term (current) use of oral hypoglycemic drugs; K57.30 Diverticulosis of large intestine without perforation or abscess without bleeding
CPT/HCPCS: 45378; 99152; J2250; J3010

== ENCOUNTER → 2021-03-29 07:08 | Outpatient (CLI) | payer OTHER, SELFPAY ==
[2020-06-29 11:48] VITALS: BMI 29.9
[2021-03-29 08:35] LABS: Hemoglobin A1C% w Est Avg Glu 7.2 % (4.0-6.0)
== END ==
PROVIDERS: PCP Family Medicine; Referring Provider Family Medicine; Visit Provider Family Medicine
DX: E11.9 Type 2 diabetes mellitus without complications (principal)
CPT/HCPCS: 36415; 83036

== ENCOUNTER → 2021-04-04 16:19 | Outpatient (CLI) | payer OTHER, SELFPAY ==
[2020-06-29 11:48] VITALS: BMI 29.9
== END ==
PROVIDERS: PCP Family Medicine; Referring Provider Family Medicine; Visit Provider Family Medicine
DX: R19.7 Diarrhea, unspecified (principal)
CPT/HCPCS: 87045; 87177; 87899

== ENCOUNTER → 2021-05-17 15:39 | Outpatient (CLI) | payer OTHER, SELFPAY ==
[2020-06-29 11:48] VITALS: BMI 29.9
--- NOTE | 2021-05-17 | DI.MG.S_ITS ---
BILATERAL DIGITAL SCREENING MAMMOGRAM 3D/2D WITH CAD: 05/17/2021 CLINICAL: Routine screening. Family history of breast cancer. Comparison is made to exams dated: 05/09/2020 mammogram, 04/02/2019 mammogram, and 12/26/2017 mammogram - [facility]. There are scattered fibroglandular elements in both breasts. Current study was also evaluated with a Computer Aided Detection (CAD) system. No significant masses, calcifications, or other findings are seen in either breast. There has been no significant interval change. IMPRESSION: NEGATIVE There is no mammographic evidence of malignancy. A 1 year screening mammogram is recommended. This exam was interpreted at Station ID: [id number]. NOTE: For mammograms, a report in lay terms will be sent to the patient. Approximately 15% of breast malignancies will not be visualized mammographically. In the management of a palpable breast mass, a negative mammogram must not discourage biopsy of a clinically suspicious lesion. Electronically Signed By: Gladis martinez/tani:05/17/2021 17:51:02 letter sent: Normal Exam ACR BI-RADS Category 1: Negative [id number]
== END ==
PROVIDERS: PCP Family Medicine; Referring Provider Family Medicine; Visit Provider Family Medicine
DX: Z12.31 Encounter for screening mammogram for malignant neoplasm of breast (principal); Z80.3 Family history of malignant neoplasm of breast
CPT/HCPCS: 77063; 77067

== ENCOUNTER → 2021-09-04 13:44 | Outpatient (CLI) | payer OTHER, SELFPAY ==
[2020-06-29 11:48] VITALS: BMI 29.9
--- NOTE | 2021-09-04 13:50 | DI.CT.S_ITS ---
PROCEDURE: CT CHEST WO CON INDICATIONS: LL nodule f/u TECHNIQUE: Noncontrast 5 mm thick sections acquired from the pulmonary apices to the posterior costophrenic angles. 1 mm lung window, 5 mm thick coronal and sagittal and 7 mm axial MIP reformats were then acquired. For radiation dose reduction, the following was used: automated exposure control, adjustment of mA and/or kV according to patient size. COMPARISON: [facility], CT, CT ABDOMEN PELVIS WO CON, 06/29/2020, 9:11. FINDINGS: Image quality: Excellent. Lungs and pleura: No acute air space opacities. No pleural effusions or pneumothorax. Central and peripheral airways are patent and normal in caliber. Nodules: 1. Right lower lobe, there is a 3.5 mm peripheral nodule lateral on image 3/181, stable. 2. Right lower lobe posteriorly, there is a 5 mm bilobed nodule on image 3/181, previously 2 mm 3. Right lower lobe lateral pleural-based nodule on image 3/173 now measures 7 x 3 mm, previously 6 x 2 mm 4. Left lower lobe 7 mm lateral nodule on image 3/197, stable 5. Left lower lobe 1-2 mm subpleural nodules on image 3/195, new from the prior 6. Right middle lobe 3 mm nodule on image 3/168, previously 2 mm Mediastinum: Heart size is normal. No pericardial effusion. No mediastinal adenopathy by size criteria. Thoracic aorta and central pulmonary arteries are normal in size. Esophagus is normal in caliber. No hiatal hernia. Bones and chest wall: No suspicious bony lesions. No vertebral body compression fractures. No axillary or supraclavicular adenopathy by size criteria. Thyroid gland unremarkable . Abdomen: Liver is diffusely decreased in attenuation without focal mass lesion. Partially imaged spleen and both adrenal glands unremarkable. IMPRESSION: 1. Bilateral subcentimeter pulmonary nodules, minimally increased in size compared to the prior. Recommend 3-6 month follow-up 2. Hepatic fatty infiltration Approved by: Donny Garcia M.D. on 09/05/2021 at 10:13
== END ==
PROVIDERS: PCP Family Medicine; Referring Provider Family Medicine; Visit Provider Family Medicine
DX: R91.8 Other nonspecific abnormal finding of lung field (principal); K76.0 Fatty (change of) liver, not elsewhere classified
CPT/HCPCS: 71250

== ENCOUNTER → 2021-09-28 07:27 | Outpatient (CLI) | payer OTHER, SELFPAY ==
[2020-06-29 11:48] VITALS: BMI 29.9
[2021-09-28 08:20] LABS: Add Manual Diff / Slide Review NO; Basophils Absolute Auto 0 /uL (0-100); Basophils Percent Auto 0.9 % (0-2); Eosinophils Absolute Auto 100 /uL (0-450); Eosinophils Percent Auto 2.8 % (2-4); Hematocrit 38.6 % (36-46); Lymphocytes Absolute Auto 1600 /uL (1100-4500); Lymphocytes Percent Auto 50.6 % (25-40); Mean Corpuscular HGB Conc 33.7 % (30-36); Mean Corpuscular Hemoglobin 29.9 PG (26-34); Mean Corpuscular Volume 88.6 fL (80-100); Monocytes Absolute Auto 300 /uL (0-900); Monocytes Percent Auto 8.7 % (3-14); Neutrophils Absolute Auto 1200 /uL (1500-7000); Platelet Count 201 X10^3/uL (150-400); Red Blood Cell Count 4.36 X10^6/uL (4.0-5.2); Red Cell Distribution Width 12.5 % (11.6-14.8); White Blood Cell Count 3.2 X10^3/uL (4.5-11.0)
[2021-09-28 08:36] LABS: Hemoglobin A1C% w Est Avg Glu 8.7 % (4.0-6.0)
[2021-09-28 08:54] LABS: Alanine Aminotransferase 68 IU/L (<35); Albumin 4.3 g/dL (3.5-5.0); Albumin Globulin Ratio 1.7 (1.0-2.8); Alkaline Phosphatase 66 U/L (38-126); Aspartate Aminotransferase 48 IU/L (14-36); BUN Creatinine Ratio 18.7 (6-22); Bilirubin Total 0.5 mg/dL (0.2-1.3); Blood Urea Nitrogen 17 mg/dL (7-17); Calcium 10.2 mg/dL (8.4-10.2); Carbon Dioxide 28 mmol/L (22-32); Chloride 102 mmol/L (98-107); Cholesterol 245 mg/dL (140-199); Estimated Glomerular Filt Rate > 60.0 mL/min (>60); Globulin 2.6 g/dL (1.7-4.1); Glucose 214 mg/dL (80-110); HDL Cholesterol 38 mg/dL (40-60); HEMOLYSIS < 15 (0-50); LDL Cholesterol Calculated 142 mg/dL (<100); Potassium 4.2 mmol/L (3.4-5.1); Sodium 139 mmol/L (137-145); Total Protein 6.9 g/dL (6.3-8.2); Triglycerides 323 mg/dL (35-150)
[2021-09-28 08:57] LABS: Microalbumin Urine Random 0.8 mg/dL (0-1.6)
[2021-09-28 09:00] LABS: Creatinine Urine Random 72.4 mg/dL
[2021-09-28 09:19] LABS: TSH w/ Reflex to FT4 5.86 uIU/mL (0.47-4.68)
[2021-09-28 09:58] LABS: Free T4, Direct Thyroxine 0.78 ng/dL (0.78-2.19)
== END ==
PROVIDERS: PCP Family Medicine; Referring Provider Family Medicine; Visit Provider Family Medicine
DX: E78.5 Hyperlipidemia, unspecified (principal); E11.9 Type 2 diabetes mellitus without complications
CPT/HCPCS: 36415; 80053; 80061; 82043; 82570; 83036; 84439; 84443; 85025

== ENCOUNTER → 2022-01-19 11:48 | Outpatient (CLI) | payer OTHER, SELFPAY ==
[2020-06-29 11:48] VITALS: BMI 29.9
--- NOTE | 2022-01-19 11:52 | DI.CT.S_ITS ---
PROCEDURE: CT CHEST WO CON INDICATIONS: FU LL Lung nodule 4-6 mo TECHNIQUE: Noncontrast 2.0-2.5 mm thick sections acquired from the pulmonary apices to the posterior costophrenic angles. 7 mm thick axial MIP and 5 mm coronal and sagittal reformats were then acquired. A low radiation dose technique was utilized. COMPARISON: [facility], CT, CT ABDOMEN PELVIS WO CON, 06/29/2020, 9:11. [facility], CT, CT CHEST WO CON, 09/04/2021, 13:56. FINDINGS: Image quality: Diagnostic, given the low radiation dose technique. Lungs and pleura: No significant interval change of the patient's bilateral pulmonary nodules. No consolidation, pleural effusion, or pneumothorax. Left upper lobe: 3.5 mm nodule (3-85), unchanged. Left lower lobe: 6.7 mm (3-204), unchanged. Mediastinum: Heart size is normal. No pericardial effusion. Coronary artery calcifications are seen. No mediastinal adenopathy by size criteria. Thoracic aorta and central pulmonary arteries are normal in size. Esophagus is normal in caliber. No hiatal hernia. Bones and chest wall: No suspicious bony lesions. No vertebral body compression fractures. No axillary or supraclavicular adenopathy by size criteria. Thyroid gland demonstrates homogeneous attenuation. Abdomen: Visualized upper abdomen solid organs and bowel loops appear normal in the absence of contrast. Hepatic steatosis IMPRESSION: 1. Stable noncalcified pulmonary nodule in the left lower lobe, measuring 7 mm. Optional follow-up CT at 18-24 months (June 2022) to ensure stability. Recommendations do not apply to lung cancer screening, patients with immunosuppression, or patients with known primary cancer. Dictated by: Angelo Timmons M.D. on 01/19/2022 at 13:47 Approved by: Angelo Timmons M.D. on 01/19/2022 at 13:58
== END ==
PROVIDERS: PCP Family Medicine; Referring Provider Family Medicine; Visit Provider Family Medicine
DX: R91.8 Other nonspecific abnormal finding of lung field (principal)
CPT/HCPCS: 71250

== ENCOUNTER → 2022-03-27 06:38 | Outpatient (CLI) | payer OTHER, SELFPAY ==
[2020-06-29 11:48] VITALS: BMI 29.9
[2022-03-27 08:30] LABS: Hemoglobin A1C% w Est Avg Glu 7.8 % (4.0-6.0)
[2022-03-27 09:03] LABS: TSH w/ Reflex to FT4 2.93 uIU/mL (0.47-4.68)
== END ==
PROVIDERS: PCP Family Medicine; Referring Provider Physician Assistant; Visit Provider Physician Assistant
DX: E03.9 Hypothyroidism, unspecified (principal); E11.65 Type 2 diabetes mellitus with hyperglycemia
CPT/HCPCS: 36415; 83036; 84443

== ENCOUNTER → 2022-05-21 08:05 | Outpatient (CLI) | payer OTHER, SELFPAY ==
[2020-06-29 11:48] VITALS: BMI 29.9
--- NOTE | 2022-05-21 08:06 | DI.MG.S_ITS ---
BILATERAL DIGITAL SCREENING MAMMOGRAM 3D/2D WITH CAD: 05/21/2022 CLINICAL: Routine screening. Family history of breast cancer. Comparison is made to exams dated: 05/17/2021 mammogram, 05/09/2020 mammogram, and 04/02/2019 mammogram - [facility]. There are scattered fibroglandular elements in both breasts. Current study was also evaluated with a Computer Aided Detection (CAD) system. No significant masses, calcifications, or other findings are seen in either breast. There has been no significant interval change. IMPRESSION: NEGATIVE There is no mammographic evidence of malignancy. A 1 year screening mammogram is recommended. Based on the Tyrer Cuzick model (a risk assessment model) the patient's lifetime risk is 12.3% and her 10 year risk is 6.0%. According to the ACR, ACS, and NCCN guidelines, an annual breast MRI exam along with mammogram is recommended if the patient's lifetime risk is 20% or greater. This exam was interpreted at Station ID: [id number]. NOTE: For mammograms, a report in lay terms will be sent to the patient. Approximately 15% of breast malignancies will not be visualized mammographically. In the management of a palpable breast mass, a negative mammogram must not discourage biopsy of a clinically suspicious lesion. Electronically Signed By: Jean Carlos lerma/tani:05/21/2022 09:00:22 letter sent: Normal Exam ACR BI-RADS Category 1: Negative 3341F
== END ==
PROVIDERS: PCP Family Medicine; Referring Provider Family Medicine; Visit Provider Family Medicine
DX: Z12.31 Encounter for screening mammogram for malignant neoplasm of breast (principal); Z80.3 Family history of malignant neoplasm of breast
CPT/HCPCS: 77063; 77067

== ENCOUNTER → 2022-08-06 07:26 | Outpatient (CLI) | payer OTHER, SELFPAY ==
[2020-06-29 11:48] VITALS: BMI 29.9
[2022-08-06 10:20] LABS: Hemoglobin A1C% w Est Avg Glu 7.7 % (4.0-6.0)
[2022-08-06 10:31] LABS: Cholesterol 255 mg/dL (140-199); HDL Cholesterol 41 mg/dL (40-60); LDL Cholesterol Calculated 171 mg/dL (<100); Triglycerides 214 mg/dL (35-150)
[2022-08-06 14:20] LABS: Microalbumin Urine Random 1.1 mg/dL (0-1.6)
[2022-08-06 14:24] LABS: Creatinine Urine Random 162.7 mg/dL; Microalbumi Creatinin Ratio Ur 6.7 ug/mg CR (<30)
== END ==
PROVIDERS: Physician Assistant; PCP Family Medicine; Referring Provider Family Medicine; Visit Provider Family Medicine
DX: E11.9 Type 2 diabetes mellitus without complications (principal); E11.65 Type 2 diabetes mellitus with hyperglycemia; E78.2 Mixed hyperlipidemia
CPT/HCPCS: 36415; 80061; 82043; 82570; 83036

== ENCOUNTER → 2023-04-04 07:05 | Outpatient (CLI) | payer OTHER, SELFPAY ==
[2020-06-29 11:48] VITALS: BMI 29.9
[2023-04-04 08:09] LABS: Add Manual Diff / Slide Review NO; Basophils Absolute Auto 0 /uL (0-100); Basophils Percent Auto 0.7 % (0-2); Eosinophils Absolute Auto 100 /uL (0-450); Eosinophils Percent Auto 4.4 % (2-4); Hematocrit 37.1 % (36-46); Hemoglobin 12.5 g/dL (12.0-16.0); Lymphocytes Absolute Auto 1200 /uL (1100-4500); Lymphocytes Percent Auto 34.4 % (25-40); Mean Corpuscular HGB Conc 33.6 % (30-36); Mean Corpuscular Hemoglobin 28.2 PG (26-34); Mean Corpuscular Volume 83.8 fL (80-100); Monocytes Absolute Auto 400 /uL (0-900); Monocytes Percent Auto 10.8 % (3-14); Neutrophils Absolute Auto 1700 /uL (1500-7000); Neutrophils Percent Auto 49.7 % (50-75); Platelet Count 204 X10^3/uL (150-400); Red Blood Cell Count 4.43 X10^6/uL (4.0-5.2); Red Cell Distribution Width 13.8 % (11.6-14.8); White Blood Cell Count 3.4 X10^3/uL (4.5-11.0)
[2023-04-04 08:40] LABS: Alanine Aminotransferase 48 IU/L (<35); Albumin 4.1 g/dL (3.5-5.0); Albumin Globulin Ratio 1.5 (1.0-2.8); Alkaline Phosphatase 76 U/L (38-126); Aspartate Aminotransferase 44 IU/L (14-36); BUN Creatinine Ratio 23.9 (6-22); Bilirubin Total 0.4 mg/dL (0.2-1.3); Blood Urea Nitrogen 21 mg/dL (7-17); Calcium 9.8 mg/dL (8.4-10.2); Carbon Dioxide 27 mmol/L (22-32); Chloride 102 mmol/L (98-107); Estimated Glomerular Filt Rate > 60 mL/min (>60); Globulin 2.7 g/dL (1.7-4.1); Glucose 221 mg/dL (80-110); HEMOLYSIS < 15 (0-50); Potassium 4.5 mmol/L (3.4-5.1); Sodium 137 mmol/L (137-145); Total Protein 6.8 g/dL (6.3-8.2)
[2023-04-04 08:50] LABS: Creatinine Urine Random 56.2 mg/dL
[2023-04-04 09:30] LABS: Microalbumin Urine Random < 0.6 mg/dL (0-1.6)
[2023-04-05 05:47] LABS: x Labcorp Estim. Avg Glu (eAG) 197 mg/dL (.); x Labcorp Hemoglobin A1c 8.5 % (4.8-5.6)
== END ==
PROVIDERS: PCP Family Medicine; Referring Provider Family Medicine; Visit Provider Family Medicine
DX: E11.65 Type 2 diabetes mellitus with hyperglycemia (principal); E78.2 Mixed hyperlipidemia
CPT/HCPCS: 36415; 80053; 82043; 82570; 83036; 85025

== ENCOUNTER 2023-05-08 07:50 | Day surgery (SDC) | payer OTHER, SELFPAY ==
[2020-06-29 11:48] VITALS: BMI 29.9
[2023-05-07 14:38] VITALS: BMI 30.6
[2023-05-08] VITALS (23 sets, daily range): BP systolic 123–175; BP diastolic 60–98; PULSE 62–92; RESP 11–22; TEMP 36–37.3; O2SAT 91–99; BMI 29.7
[2023-05-08] MEDS: LACTATED RINGERS 1,000 ML 100 ML IV ×2 (08:21→10:34)
--- NOTE | 2023-05-08 08:59 | PM.PREOP ---
Pre-operative Note Interval Note History & Physical reviewed/Exam performed by Physician: Yes Changes to H&P: No
[2023-05-08] MEDS: INSULIN REGULAR 100 UNIT/ML 3 ML VIAL SUBCUT (09:22)
[2023-05-08] MEDS: CEFAZOLIN 2 GM/100 ML PREMIX 100 ML IV (09:39)
[2023-05-08] MEDS: BUPIVACAINE 0.5% (PF) 30 ML VIAL INJ (09:58)
[2023-05-08] MEDS: VANCOMYCIN 1,000 MG VIAL 1000 MG TOP (10:29)
--- NOTE | 2023-05-08 11:11 | PM.OP.1 ---
Operative Date/Time/Diagnoses Date of procedure: 05/08/23 Time of procedure: 11:11 Pre-op diagnosis: Incisional ventral hernia 15 cm Post-op diagnosis: same Procedure & Clinicians Procedure: Open ventral hernia repair with mesh 15 cm Same procedure as scheduled: Yes Indications: Incisional ventral hernia Surgeon: eDnis Carter Gettering Operator: Oneil Peacock Click Yes if Unassisted: Yes Anesthesia Type: General Operative Notes Findings: 15 cm fascial defect. 20 x 15 cm Bard Ventralex mesh Estimated Blood Loss (mL): 50 Procedure in detail: Patient was brought to the operating room placed supine on the table. Bilateral lower extremity compression devices were applied. They received 2 g of Ancef prior to skin incision. Prepped and draped in sterile fashion, time-out was performed. A periumbilical midline incision was made through her previous scar. The previous midline scar was excised. The subcutaneous tissue was divided to expose the midline fascia. The fascia was grasped elevated and sharply opened. There were minimal intra-abdominal adhesions and those were sharply lysed.. A towel was then placed over the visceral content to protect it out of harms way. The extent of the hernia defect measured 15 cm in maximal diameter. The hernia sac was excised. I attempted to entered the retro muscular space but this was well fused together and therefore we decided to place the mesh intraperitoneal. The rectus sheath was exposed bilaterally with the development of skin flaps. This allowed the rectus sheath to come together in the midline without undue tension. A 15 by 20 cm Bard polypropylene mesh with nonadhesive barrier was placed into the abdomen in order to provide good coverage in all directions with the anti-adhesive surface down towards the bowel. The mesh was anchored with interrupted Ethibond in transfascial fashion such that the mesh lay under physiologic tension. The anterior sheath/ linea alba was then closed in interrupted fashion with 1. PDS without tension. Hemostasis was checked. The subcutaneous tissue was then reapproximated using Vicryl skin closed with running 4-0 Monocryl followed by the application of Dermabond. Patient emerged from anesthesia was extubated and transferred to recovery room in stable condition. Complications: none Post-operative Condition: stable Disposition: same day surgery
[2023-05-08] MEDS: fentaNYL 100 MCG/2 ML INJ IV ×2 (11:55→12:12)
[2023-05-08] MEDS: OXYCODONE/ACETAMINOPHEN 5/325 TABLET 1 TAB PO ×2 (12:08→13:18)
--- NOTE | 2023-05-08 12:51 | SUR.PHASEII ---
Pt to phase II in stretcher. States, I just want to take a nap Rates pain 6/10 but feel asleep easily. Resp rate regular. O2 at 1L NC. Cont pulse ox at 93%.
--- NOTE | 2023-05-08 14:30 | SUR.PHASEII ---
Pt instructed on use of incentive spirometer and bracing with pillow when coughing. Pt indicates understanding of instructions.
[2023-05-08] MEDS: HYDROMORPHONE 2 MG INJ IV (15:13)
--- NOTE | 2023-05-08 15:26 | SUR.PHASEII ---
Pt attempted to get up to the BR. Pain at starting 4/10 and then after sitting on edge of and taking a few steps pt became pale and pain too severe to walk to toilet. Pt needed 2 person assist to get back in bed. Needed bedpan for voiding. Medicated with dilaudid IV. Dr Emma mayfield.
--- NOTE | 2023-05-08 15:40 | SUR.PHASEII ---
Dr Carter notified of patient with pain too much to ambulate to BR and needing 2L of oxygen for sats on room air 88-90%. See order for observation. SBAR report called to Lisa MOORE.
--- NOTE | 2023-05-08 16:43 | SUR.PHASEII ---
Pt transferred to room 224 by Donnie MOORE and transferred to bed with slider board. Pt with 1 belongings bag.
[2023-05-08] MEDS: HYDROMORPHONE 0.5 MG INJ IV (16:48)
[2023-05-08] MEDS: ACETAMINOPHEN 325 MG TABLET 650 MG PO ×2 (16:49→20:46)
[2023-05-08] MEDS: CELECOXIB 200 MG CAPSULE PO ×2 (16:49→20:47)
[2023-05-08] MEDS: INSULIN LISPRO 100 UNIT/ML 3ML VIAL SUBCUT (17:14)
--- NOTE | 2023-05-08 17:52 | PC.ADMIT ---
[email or web address] Admission Note: The patient,Apurva Angelo,67 y/o, was given written information regarding hospital policies, unit procedures and contact persons. Patient's smoking status: Never smoker. Vital Signs - 8 hr 05/08/23 11:26 05/08/23 11:30 05/08/23 11:41 Temperature 97.6 F Pulse Rate 72 65 78 Respiratory Rate 13 11 L 16 Blood Pressure 143/73 H 143/73 H 132/65 Pulse Oximetry 94 99 94 Oxygen Delivery Method Simple Mask Room Air Room Air Oxygen Flow Rate 8 05/08/23 11:45 05/08/23 11:50 05/08/23 11:55 Temperature 97.8 F Pulse Rate 73 68 Respiratory Rate 12 12 Blood Pressure 141/64 H 141/65 H Pulse Oximetry 93 95 Oxygen Delivery Method Room Air Room Air Oxygen Flow Rate 05/08/23 11:55 05/08/23 12:01 05/08/23 12:08 Temperature 97.6 F Pulse Rate 62 63 Respiratory Rate 11 L 12 Blood Pressure 138/70 Pulse Oximetry 93 92 Oxygen Delivery Method Room Air Room Air Oxygen Flow Rate 05/08/23 12:12 05/08/23 12:11 05/08/23 12:20 Temperature 98.1 F Pulse Rate 66 64 Respiratory Rate 15 13 Blood Pressure 123/60 125/65 Pulse Oximetry 97 96 Oxygen Delivery Method Nasal Cannula Nasal Cannula Oxygen Flow Rate 4 4 05/08/23 12:34 05/08/23 12:45 05/08/23 11:35 Temperature Pulse Rate 65 68 66 Respiratory Rate 14 16 12 Blood Pressure 125/61 126/60 138/70 Pulse Oximetry 94 92 98 Oxygen Delivery Method Nasal Cannula Nasal Cannula Simple Mask Oxygen Flow Rate 2 1 8 05/08/23 13:10 05/08/23 14:10 05/08/23 15:23 Temperature 97.6 F 98.0 F Pulse Rate 74 76 66 Respiratory Rate 18 18 14 Blood Pressure 124/80 130/68 125/74 Pulse Oximetry 96 94 95 Oxygen Delivery Method Nasal Cannula Nasal Cannula Nasal Cannula Oxygen Flow Rate 2 2 2 05/08/23 16:45 05/08/23 16:30 05/08/23 16:32 Temperature 98.0 F Pulse Rate 92 H Respiratory Rate 22 Blood Pressure 175/98 H Pulse Oximetry 92 91 Oxygen Delivery Method Nasal Cannula Nasal Cannula Oxygen Flow Rate 2 2 05/08/23 17:10 Temperature 99.1 F Pulse Rate 71 Respiratory Rate 18 Blood Pressure 128/64 Pulse Oximetry 94 Oxygen Delivery Method Oxygen Flow Rate 2 Pt arrived via surgical gurney from PACU, slide board used to move pt to new bed. Pt crying out in extreme pain, connected pt to monitoring equipment, oriented to room and call light system. Medicated with tylenol, celebrex, and .5 Dilaudid, new ice pack placed on abdomen. FSBG 187, covered with 1 unit insulin. Bed low and locked, call light within reach will continue to monitor
[2023-05-08] MEDS: OXYCODONE IR 5 MG TABLET PO (20:46)
[2023-05-09] VITALS: BP 127/68; PULSE 64; RESP 15; TEMP 36.7; O2SAT 96; O2SAT 97
[2023-05-09] MEDS: OXYCODONE IR 5 MG TABLET PO ×2 (02:13→10:10)
[2023-05-09 04:00] VITALS: BP 116/60; PULSE 60; RESP 16; TEMP 36.4; O2SAT 96
[2023-05-09 08:00] VITALS: BP 129/59; PULSE 75; RESP 14; TEMP 36.7; O2SAT 93; O2SAT 95
[2023-05-09] MEDS: CELECOXIB 200 MG CAPSULE PO (09:14)
[2023-05-09] MEDS: ACETAMINOPHEN 325 MG TABLET 650 MG PO (09:44)
[2023-05-09 12:00] VITALS: BP 114/56; PULSE 74; RESP 16; TEMP 36.7; O2SAT 92; O2SAT 93
--- NOTE | 2023-05-09 12:38 | CM.DANOTE ---
DCP: Case received, EMR reviewed and met with patient. Introduced self and role. Was able to obtain information regarding patient's baseline activity status prior to her surgery. DCP assessment completed with information currently available. Patient is a 67 year old female who admitted yesterday morning to the care of the surgical team. PCP: Dr. Ye. Payer: confirmed: [facility] Ad[employer]age. Patient came to the hospital via private vehicle for a surgical procedure. Patient had open ventral hernia repair with mesh. Patient has history of incisional ventral hernia. Met with patient in her room. She is alert and oriented, pleasant. Confirmed that she resides here in [place] with spouse, Luis Enrique. She is independent at baseline, and is employed at [employer] [facility]. P: DCP to continue to follow. Patient should be able to go home when deemed medically stable. Cathy Doll RN/Reproduction Production Manager Discharge Planning/Care Management CM Discharge Assessment Start: 05/09/23 12:33 Freq: Status: Active Protocol: Document 05/09/23 12:33 (Rec: 05/09/23 12:38 [id number]) Discharge Planning Assessment Assigned Rose Grower Cathy Doll RN/Reproduction Production Manager Advance Directives? No Advance Directives on File No History Provided By Patient,Medical Record Prior Living Arrangements House Household Members spouse Type of transporation used prior to Drives own vehicle admit Independent with ADL's Yes Is patient alert and oriented? Yes Caregiver for Another No Barriers to Discharge No Discharge Plan Home Transportation Arrangement Spouse can provide transport home at d/c Referrals Initiated None needed Whiteboard Updated in Patient Room with Yes name and ext. # of Rose Grower Review Status In Process Next Review Type Continued Stay Review Pre-Anesthesia Assessment Start: 04/30/23 12:48 Freq: Status: Active Protocol: Document 05/07/23 14:38 CAB (Rec: 04/30/23 12:54 CAB [id number]) Pre-Anesthesia Assessment Patient Information Reviewed Via Chart Review Primary Care Provider Damaso Ye Seen Specialist in Last 12 Months Yes Specialist Seen General surgeon Primary Language Moroccan Preferred Language Moroccan Six Horse Hitch Driver Required No Height 5 ft 5 in Weight 184 lb Body Mass Index (BMI) 30.6 Visual Assist Glasses Barriers to Learning None Hx Anesthesia Reactions No Hx Family Anesthesia Reaction No Hx Malignant Hyperthermia No Hx Blood Transfusions No Hx Blood Transfusion Reaction No Anesthesia Review Requested No Resource Manager No alcohol intake current alcohol intake frequency 0-2 drinks per day Smoking Status Never smoker Substance Use Type does not use History of Falling (Recent or History of No ) Patient is completely paralyzed or No completely immobile Mental Status Oriented to own ability Is patient on oxygen? No Does patient have REEVES/SOB No Hx Sleep Apnea No CPAP/BIPAP use not prescribed Currently Taking a Beta Dario No Hx Chest Pain No Hx SOB No Hx Syncope or Dizziness No Anti-Coagulant Therapy No Has a Painter Ordnance No Cardiac Testing No Hx Pacemaker/ICD No Pacemaker Rep Required? No Dysphagia No Gastrointestinal Symptoms None Urinary Catheter Present No Hx Urinary Self Catheterization No Diabetes Yes HgbA1C 8.5 Date 04/04/23 Patient No Lactating No Presence of External or Internal Medical No Devices Marital Status Lives With spouse Patient Discharge Plan Description Return Home Do You Have Any Spiritual Beliefs That No May Affect Your HC Choices? Do You Have Any Cultural Practices That No May Affect Your HC Choices? Emergency Contact Name Luis Enrique Angelo Emergency Contact Advance Directives? No Advance Directives on File No Power of Medical Field Representative No
== END 2023-05-09 14:34 | disposition home or self-care (01) ==
LOC: OR 11:40 → AC 15:31
PROVIDERS: PCP Family Medicine; Referring Provider Surgery; Visit Provider Surgery
PROC: (CPT 49595; principal; 2023-05-08 09:15)
DX: K43.2 Incisional hernia without obstruction or gangrene (principal); K66.0 Peritoneal adhesions (postprocedural) (postinfection)
CPT/HCPCS: 49595; 36415; 82962; J0690; J1170; J1815; J2405; J2704; J3010

== ENCOUNTER → 2023-06-04 12:39 | Outpatient (CLI) | payer OTHER, SELFPAY ==
[2023-05-08 16:50] VITALS: BMI 29.7
--- NOTE | 2023-06-04 12:40 | DI.MG.S_ITS ---
BILATERAL DIGITAL SCREENING MAMMOGRAM 3D/2D WITH CAD: 06/04/2023 CLINICAL: Routine screening. Comparison is made to exams dated: 05/21/2022 mammogram, 05/17/2021 mammogram, 05/09/2020 mammogram, and 04/02/2019 mammogram - [facility]. There are scattered areas of fibroglandular density in both breasts (category b / 25%-50% glandular tissue). Current study was also evaluated with a Computer Aided Detection (CAD) system. No significant masses, calcifications, or other findings are seen in either breast. There has been no significant interval change. IMPRESSION: NEGATIVE There is no mammographic evidence of malignancy. A 1 year screening mammogram is recommended. Based on the Tyrer Cuzick model (a risk assessment model) the patient's lifetime risk is 11.8% and her 10 year risk is 6.0%. According to the ACR, ACS, and NCCN guidelines, an annual breast MRI exam along with mammogram is recommended if the patient's lifetime risk is 20% or greater. This exam was interpreted at Station ID: [id number]. NOTE: For mammograms, a report in lay terms will be sent to the patient. Approximately 15% of breast malignancies will not be visualized mammographically. In the management of a palpable breast mass, a negative mammogram must not discourage biopsy of a clinically suspicious lesion. Electronically Signed By: Louis rosario/tani:06/04/2023 16:59:59 letter sent: Normal Exam ACR BI-RADS Category 1: Negative 3341F
== END ==
PROVIDERS: PCP Family Medicine; Referring Provider Family Medicine; Visit Provider Family Medicine
DX: Z12.31 Encounter for screening mammogram for malignant neoplasm of breast (principal)
CPT/HCPCS: 77063; 77067

== ENCOUNTER → 2023-11-09 14:05 | Outpatient (CLI) | payer OTHER, SELFPAY ==
[2023-05-08 16:50] VITALS: BMI 29.7
== END ==
PROVIDERS: PCP Family Medicine; Visit Provider Student in an Organized Health Care Education/Training Program
DX: R30.0 Dysuria (principal)
CPT/HCPCS: 87077; 87086; 87186

== ENCOUNTER → 2024-01-13 07:28 | Outpatient (CLI) | payer OTHER, SELFPAY ==
[2023-05-08 16:50] VITALS: BMI 29.7
[2024-01-13 08:23] LABS: Add Manual Diff / Slide Review NO; Basophils Absolute Auto 0 /uL (0-100); Basophils Percent Auto 0.7 % (0-2); Eosinophils Absolute Auto 100 /uL (0-450); Eosinophils Percent Auto 2.9 % (2-4); Hemoglobin 11.6 g/dL (12.0-16.0); Lymphocytes Absolute Auto 1200 /uL (1100-4500); Lymphocytes Percent Auto 37.4 % (25-40); Mean Corpuscular HGB Conc 33.1 % (30-36); Mean Corpuscular Hemoglobin 26.7 PG (26-34); Mean Corpuscular Volume 80.6 fL (80-100); Monocytes Absolute Auto 300 /uL (0-900); Monocytes Percent Auto 10.5 % (3-14); Neutrophils Absolute Auto 1500 /uL (1500-7000); Neutrophils Percent Auto 48.5 % (50-75); Platelet Count 218 X10^3/uL (150-400); Red Blood Cell Count 4.34 X10^6/uL (4.0-5.2); Red Cell Distribution Width 13.6 % (11.6-14.8); White Blood Cell Count 3.2 X10^3/uL (4.5-11.0)
[2024-01-13 08:51] LABS: Alanine Aminotransferase 38 IU/L (<35); Albumin 4.2 g/dL (3.5-5.0); Albumin Globulin Ratio 1.4 (1.0-2.8); Alkaline Phosphatase 64 U/L (38-126); Aspartate Aminotransferase 38 IU/L (14-36); BUN Creatinine Ratio 20.6 (6-22); Bilirubin Total 0.6 mg/dL (0.2-1.3); Blood Urea Nitrogen 20 mg/dL (7-17); Calcium 9.6 mg/dL (8.4-10.2); Carbon Dioxide 26 mmol/L (22-32); Chloride 108 mmol/L (98-107); Cholesterol 244 mg/dL (140-199); Estimated Glomerular Filt Rate > 60 mL/min (>60); Globulin 3.1 g/dL (1.7-4.1); Glucose 124 mg/dL (80-110); HDL Cholesterol 43 mg/dL (40-60); HEMOLYSIS < 15 (0-50); LDL Cholesterol Calculated 150 mg/dL (<100); Potassium 4.3 mmol/L (3.4-5.1); Sodium 140 mmol/L (137-145); Total Protein 7.3 g/dL (6.3-8.2); Triglycerides 254 mg/dL (35-150)
[2024-01-13 09:15] LABS: Microalbumin Urine Random < 0.6 mg/dL (0-1.6)
[2024-01-13 09:18] LABS: TSH w/ Reflex to FT4 3.83 uIU/mL (0.47-4.68)
== END ==
LOC: LAB 07:29
PROVIDERS: PCP Family Medicine; Referring Provider Family Medicine; Visit Provider Family Medicine
DX: E03.9 Hypothyroidism, unspecified (principal); E78.2 Mixed hyperlipidemia; E11.9 Type 2 diabetes mellitus without complications
CPT/HCPCS: 80053; 80061; 82043; 82570; 83036; 84443; 85025

== ENCOUNTER → 2024-02-18 07:42 | Outpatient (CLI) | payer OTHER, SELFPAY ==
[2023-05-08 16:50] VITALS: BMI 29.7
== END ==
PROVIDERS: PCP Family Medicine; Referring Provider Family Medicine; Visit Provider Family Medicine
DX: E11.9 Type 2 diabetes mellitus without complications (principal)
CPT/HCPCS: 36415; 83036

== ENCOUNTER → 2024-05-20 07:31 | Outpatient (CLI) | payer OTHER, SELFPAY ==
[2023-05-08 16:50] VITALS: BMI 29.7
[2024-05-20 08:50] LABS: Hemoglobin A1C% w Est Avg Glu 6.6 % (4.0-6.0)
[2024-05-20 09:16] LABS: Cholesterol 188 mg/dL (140-199); HDL Cholesterol 44 mg/dL (40-60); LDL Cholesterol Calculated 106 mg/dL (<100); Triglycerides 189 mg/dL (35-150)
== END ==
PROVIDERS: PCP Family Medicine; Referring Provider Family Medicine; Visit Provider Family Medicine
DX: E11.65 Type 2 diabetes mellitus with hyperglycemia (principal); E78.2 Mixed hyperlipidemia
CPT/HCPCS: 36415; 80061; 83036

== ENCOUNTER → 2024-11-05 15:21 | Outpatient (CLI) | payer OTHER, SELFPAY ==
[2023-05-08 16:50] VITALS: BMI 29.7
--- NOTE | 2024-11-05 15:27 | DI.RAD.S_ITS ---
PROCEDURE: XR WRIST RT MIN 3V INDICATIONS: swelling and pain at radial styloid, no hx of injury TECHNIQUE: 4 views of the wrist were acquired. COMPARISON: None. FINDINGS: Bones: No fractures or dislocations. No suspicious bony lesions. Soft tissues: No suspicious soft tissue calcifications. IMPRESSION: No acute osseous abnormality. If pain persists with conservative management, consider repeat x-ray in 10-14 days or cross-sectional imaging. Dictated by: Isauro Martínez M.D. on 11/06/2024 at 11:21 Approved by: Isauro Martínez M.D. on 11/06/2024 at 11:22
== END ==
PROVIDERS: PCP Family Medicine; Referring Provider Physician Assistant; Visit Provider Physician Assistant
DX: M25.531 Pain in right wrist (principal); M25.431 Effusion, right wrist
CPT/HCPCS: 73110

== ENCOUNTER → 2024-12-07 10:01 | Outpatient (CLI) | payer OTHER, SELFPAY ==
[2023-05-08 16:50] VITALS: BMI 29.7
== END ==
PROVIDERS: PCP Family Medicine; Visit Provider Family Medicine
DX: R30.0 Dysuria (principal); E03.9 Hypothyroidism, unspecified; R31.9 Hematuria, unspecified; K43.2 Incisional hernia without obstruction or gangrene; E78.2 Mixed hyperlipidemia; E11.65 Type 2 diabetes mellitus with hyperglycemia
CPT/HCPCS: 87077; 87086; 87186

== ENCOUNTER → 2024-12-30 15:40 | Outpatient (CLI) | payer OTHER, SELFPAY ==
[2023-05-08 16:50] VITALS: BMI 29.7
--- NOTE | 2024-12-30 15:42 | DI.CT.S_ITS ---
PROCEDURE: CT CHEST WO CON INDICATIONS: pulmoary nodules TECHNIQUE: Noncontrast 5 mm thick sections acquired from the pulmonary apices to the posterior costophrenic angles. 1 mm lung window, 5 mm thick coronal and sagittal and 7 mm axial MIP reformats were then acquired. For radiation dose reduction, the following was used: automated exposure control, adjustment of mA and/or kV according to patient size. COMPARISON: [facility], CT, CT CHEST WO CON, 01/19/2022, 11:52. [facility], CT, CT CHEST WO CON, 09/04/2021, 13:56. FINDINGS: Image quality: Diagnostic. Lower Neck: No enlarged lymph nodes. Thyroid: No thyroid nodules which require sonographic follow up, per consensus guidelines. Axillae: No enlarged lymph nodes. Chest Wall: Unremarkable. Bones: Unremarkable. Lungs and Pleura: No pneumothorax or pleural effusions. No consolidation or new suspicious nodules. The 2 small left-sided pulmonary nodules most recently assessed by CT scanning 01/19/22 have not changed in size or morphology. The smaller structure measures 3-4 mm seen anteriorly within the left upper lobe medially on series 3, image 72 and the 7 mm nodule at the lateral costophrenic sulcus on the left again measures 7 mm. Heart: Heart size is normal. No pericardial effusion. Thoracic Vessels: The aorta and pulmonary arteries demonstrate normal size. Mediastinum and Shabana: No enlarged lymph nodes. Esophagus: No wall thickening. No hiatal hernia. Upper Abdomen: Visualized upper abdomen solid organs and bowel loops appear normal. IMPRESSION: The two small left lung nodules are stable over time from 01/19/22, and therefore are considered benign. They likely are granulomatous in origin from the distant past and no follow-up is recommended. Dictated by: Jarek Doyle M.D. on 12/31/2024 at 12:43 Approved by: Jarek Doyle M.D. on 12/31/2024 at 12:51
== END ==
PROVIDERS: PCP Family Medicine; Referring Provider Family Medicine; Visit Provider Family Medicine
DX: R91.8 Other nonspecific abnormal finding of lung field (principal)
CPT/HCPCS: 71250

== ENCOUNTER → 2025-06-18 11:19 | Outpatient (CLI) | payer OTHER, SELFPAY ==
[2023-05-08 16:50] VITALS: BMI 29.7
--- NOTE | 2025-06-18 11:20 | DI.MG.S_ITS ---
MM screening mammo BI: 06/18/2025. BI-RADS: 1 CLINICAL: 69-year old female for bilateral screening mammogram. Tyrer-Cuzick lifetime risk of 9.8%. Current reported family history of breast cancer: mother. PRIOR EXAMS 06/04/2023, 05/21/2022, 05/17/2021, 05/09/2020. MAMMOGRAPHY TECHNIQUE: 2D and 3D (tomosynthesis) digital mammographic views obtained, with additional images as needed for full coverage. Current study was also evaluated with a Computer Aided Detection (CAD) system. DENSITY B. There are scattered areas of fibroglandular density. MAMMOGRAPHY FINDINGS Bilateral: No suspicious mass, asymmetry, microcalcification, or other abnormality seen. IMPRESSION: * No evidence of malignancy. RECOMMENDATIONS Bilateral * Annual screening mammography. OVERALL ASSESSMENT CATEGORY BI-RADS-1: Negative. The [employer] recommends annual screening mammography beginning at age 40 for women with average risk of breast cancer. ELECTRONICALLY SIGNED: Azucena Jimenez M.D. on 06/18/2025 at 08:44:43 PM PT Interpreting Station ID: [id number]
== END ==
LOC: MAMMO 11:19
PROVIDERS: PCP Family Medicine; Referring Provider Family Medicine; Visit Provider Family Medicine
DX: Z12.31 Encounter for screening mammogram for malignant neoplasm of breast (principal)
CPT/HCPCS: 77063; 77067

== ENCOUNTER → 2025-08-12 07:40 | Outpatient (CLI) | payer OTHER, SELFPAY ==
[2023-05-08 16:50] VITALS: BMI 29.7
[2025-08-12 09:07] LABS: Add Manual Diff / Slide Review NO; Hematocrit 37.2 % (36-46); Hemoglobin 12.6 g/dL (12.0-16.0); Lymphocytes Absolute Auto 1200 /uL (1100-4500); Mean Corpuscular HGB Conc 34.0 % (30-36); Mean Corpuscular Hemoglobin 29.4 PG (26-34); Mean Corpuscular Volume 86.4 fL (80-100); Platelet Count 185 X10^3/uL (150-400)
[2025-08-12 09:56] LABS: Alanine Aminotransferase 52 IU/L (<35); Albumin 4.6 g/dL (3.5-5.0); Albumin Globulin Ratio 1.7 (1.0-2.8); Alkaline Phosphatase 74 U/L (38-126); Blood Urea Nitrogen 22 mg/dL (7-17); Calcium 9.7 mg/dL (8.4-10.2); Carbon Dioxide 21 mmol/L (22-32); Chloride 107 mmol/L (98-107); Cholesterol 224 mg/dL (140-199); Estimated Glomerular Filt Rate > 60 mL/min (>60); Globulin 2.7 g/dL (1.7-4.1); Glucose 143 mg/dL (70-99); HDL Cholesterol 44 mg/dL (40-60); HEMOLYSIS < 15 (0-50); Potassium 4.6 mmol/L (3.4-5.1); Sodium 139 mmol/L (137-145); Total Protein 7.3 g/dL (6.3-8.2); Triglycerides 276 mg/dL (35-150)
[2025-08-12 10:00] LABS: Hemoglobin A1C% w Est Avg Glu 7.1 % (4.0-6.0)
== END ==
PROVIDERS: PCP Family Medicine; Referring Provider Family Medicine; Visit Provider Family Medicine
DX: E03.9 Hypothyroidism, unspecified (principal); E11.65 Type 2 diabetes mellitus with hyperglycemia; K43.2 Incisional hernia without obstruction or gangrene; E78.2 Mixed hyperlipidemia
CPT/HCPCS: 36415; 80053; 80061; 82043; 82570; 83036; 85025